=== PATIENT | male | born 1950 | race Caucasian/White ===

== ENCOUNTER 2019-07-31 14:56 | Outpatient (CLI) | payer MEDICARE, OTHER, SELFPAY ==
--- NOTE | 2019-07-31 15:03 | MR_ITS ---
WS: [id number] MRI LUMBAR SPINE NONCONTRAST TECHNIQUE: Sagittal T1, T2 and STIR imaging. Axial T1 and T2 imaging. CLINICAL INFORMATION: NECK PAIN;LUMBAR BACK PAIN COMPARISON: None. FINDINGS: Mild lumbar curve. No acute compression. Mild disc bulging L4-L5 and L5-S1. No high-grade central can al stenosis. L1-L2: Normal. L2-L3: Mild annular bulging. Mild facet arthropathy. Spinal canal and foramen are patent. L3-L4: Mild annular bulging with slight effacement of ventral thecal sac. Slight narrowing of the lef t subarticular recess. Tiny left foraminal protrusion with mild left and no significant right foramin al narrowing. Moderate facet arthropathy with small facet effusions. L4-L5: Mild annular bulging with a small annular tear. Small right foraminal protrusion with mild to moderate right and no significant left foraminal narrowing. Contact of the exiting right L4 nerve rangel t. Slight narrowing of the subarticular recess bilaterally. Mild facet arthropathy. L5-S1: Mild disc bulging with a small central disc protrusion. Slight inferior migration of disc mate rial. Slight encroachment on the traversing S1 nerve roots without significant impingement. Slight co ntact of the left S1 nerve root. Disc bulging with osteophytic ridging results in mild left greater t gardner right foraminal narrowing. Mild facet arthropathy. Visualized pelvic bony structures: Normal. Paravertebral soft tissues: Normal. MR/MR lumbar spine wo con* [id number] IMPRESSION: 1. Mild lumbar curve. No acute compression. No high-grade central canal stenos is. 2. Annular bulging L4-5 with a small annular fissure. Mild narrowing of the holguin barticular recess bilaterally. Small right foraminal protrusion with mild to mo derate right foraminal narrowing and slight contact exiting right L4 nerve root . 3. Tiny central disc protrusion L5-S1 slightly encroaches on the traversing le ft greater than right S1 nerve roots without significant impingement. 4. Mild bilateral left greater than right L5-S1 foraminal narrowing due to ecc entric disc bulging with osteophytic ridging. 5. Small left foraminal protrusion L3-4 slightly contacts the exiting L3 nerve root with mild left foraminal narrowing. 6. Moderate facet arthropathy L3-L4 and L4-L5 with edema in the L3 facets like ly degenerative or inflammatory.
== END 2019-07-31 14:57 | disposition home or self-care (01) ==
LOC: RADSHAW 15:01
PROVIDERS: Family Provider Family Medicine; PCP Family Medicine; Visit Provider Family Medicine
DX: M51.27 Other intervertebral disc displacement, lumbosacral region (principal); M51.26 Other intervertebral disc displacement, lumbar region; M54.2 Cervicalgia
CPT/HCPCS: 72148

== ENCOUNTER 2020-06-18 16:10 | Outpatient (CLI) | payer MEDICARE, OTHER, SELFPAY ==
--- NOTE | 2020-06-18 16:17 | MR_ITS ---
WS: [id number] MRI LUMBAR SPINE NONCONTRAST TECHNIQUE: Sagittal T1, T2 and STIR imaging. Axial T1 and T2 imaging. CLINICAL INFORMATION: MIDLINE LBP, LUMBAR SPONDYLOSIS, SPINAL STENOSIS OF LUMBAR COMPARISON: MRI July 31, 2019 FINDINGS: Mild lumbar curve. No acute compression. Mild disc space narrowing worse L5-S1. L1-L2: Normal. L2-L3: Minimal annular bulging. Mild facet arthropathy. Spinal canal and foramen are patent. L3-L4: Mild annular bulging. Left eccentric disc bulging with mild left and no significant right fora franc narrowing. Moderate facet arthropathy. Small facet effusions. L4-L5: Mild annular bulging. Slight narrowing of the right subarticular recess. Mild right and no sig nificant left foraminal narrowing. Moderate facet arthropathy. L5-S1: Central and right pericentral disc protrusion.Slight contact of the traversing right greater t gardner left S1 nerve roots. Mild left and no significant right foraminal narrowing. Mild facet arthropat hy. Visualized pelvic bony structures: Normal. Paravertebral soft tissues: Normal. MR/MR lumbar spine wo con* [id number] IMPRESSION: 1. Mild lumbar curve. No acute compression. No high-grade central canal stenos is. 2. Central and right pericentral disc protrusion L5-S1 contacts the traversing right S1 nerve root. Recommend correlation for right S1 nerve root symptoms. T his is slightly improved compared to previous. 3. Right eccentric disc bulging L4-5 with mild right L4-5 foraminal narrowing. Mild left L5-S1 bony foraminal narrowing. 4. Moderate facet arthropathy L3-L4 and L4-L5. .
== END 2020-06-18 16:11 | disposition home or self-care (01) ==
LOC: RADSHAW 16:14
PROVIDERS: PCP Family Medicine; Visit Provider Surgery
DX: M47.816 Spondylosis without myelopathy or radiculopathy, lumbar region (principal); M48.061 Spinal stenosis, lumbar region without neurogenic claudication; M51.26 Other intervertebral disc displacement, lumbar region
CPT/HCPCS: 72148

== ENCOUNTER 2020-09-06 09:07 | Outpatient (CLI) | payer MEDICARE, OTHER, SELFPAY ==
--- NOTE | 2020-09-06 09:15 | XRR_ITS ---
PROCEDURE INFORMATION: Exam: XR Chest Exam date and time: 09/06/2020 9:17 AM Age: 70 years old Clinical indication: Pain; Shortness of breath; Chest pressure; Additional info: Chest pressure/dyspnea/edema since 07/11 TECHNIQUE: Imaging protocol: XR of the chest. Views: Frontal and lateral upright, 2 views. COMPARISON: No relevant prior studies available. FINDINGS: Lungs: The lungs are clear bilaterally. The pulmonary vasculature is normal. Pleural spaces: No pleural effusion. No pneumothorax. Heart/Mediastinum: The heart is normal in size and contour. Bones/joints: No acute chest wall abnormality identified. XR/XR chest 2V* [id number] IMPRESSION: No acute cardiopulmonary abnormality identified.
== END 2020-09-06 09:08 | disposition home or self-care (01) ==
PROVIDERS: PCP Family Medicine; Visit Provider Family Medicine
DX: R07.89 Other chest pain (principal); R06.02 Shortness of breath; R60.9 Edema, unspecified
CPT/HCPCS: 71046

== ENCOUNTER 2020-10-06 09:19 | Outpatient (CLI) | payer MEDICARE, OTHER, SELFPAY ==
--- NOTE | 2020-10-06 09:24 | USCV_ITS ---
Duong Lei Age: 70 Gender: M : 1950 Exam Date: 10/06/2020 09:47 Ordering Phys: Leoncio Moulton DO Technologist: Queenie Cary Exam Location: [facility] [place] Indication: CHEST PRESSURE/DYSPNA/EDEMA BP: 140 / 70 HR: 75 Rhythm: Sinus Technical Quality: Adequate MEASUREMENTS (Male / Female) Normal Values 2D ECHO LV Diastolic Diameter PLAX 4.3 cm 4.2 - 5.9 / 3.9 - 5.3 cm LV Systolic Diameter PLAX 3.3 cm IVS Diastolic Thickness 1.4 cm 0.6 - 1.0 / 0.6 - 0.9 cm IVS Systolic Thickness 2.0 cm LVPW Diastolic Thickness 1.4 cm 0.6 - 1.0 / 0.6 - 0.9 cm LVPW Systolic Thickness 1.6 cm LVOT Diameter 2.2 cm LV Ejection Fraction 2D Teich 39.9 % LV Ejection Fraction MOD 2C 76.7 % LV Ejection Fraction 2C AL 77.6 % LA Diameter 3.2 cm LA Width 2.7 cm LA Height 4.2 cm Aorta at Sinotubular Diameter 3.5 cm DOPPLER AV Peak Velocity 101.0 cm/s LVOT Peak Velocity 82.0 cm/s AV Area Cont Eq vti 3.2 cm squared AV Area Cont Eq pk 3.2 cm squared MV Area PHT 2.3 cm squared Mitral E to A Ratio 0.8 MV E' Velocity 61.0 cm/s TR Peak Velocity 225.0 cm/s TR Peak Gradient 20.3 mmHg Right Atrial Pressure 3.0 mmHg Pulmonary Artery Systolic Pressu 23.3 mmHg PV Peak Velocity 91.0 cm/s RV Acceleration Time 0.2 s RV Ejection Time 0.4 s RV AcT/ET 0.5 FINDINGS Left Ventricle Normal left ventricular size and systolic function, EF 75 %. Mild left ventricular hypertrophy. No regional wall motion abnormalities. Grade I/IV diastolic dysfunction (abnormal relaxation filling pattern), normal to mildly elevated filling pressures. Right Ventricle The right ventricle is normal in size and function. Right Atrium Mildly increased right atrial size. Left Atrium The left atrium is normal in size. Mitral Valve No gross abnormalities noted Aortic Valve No gross abnormalities noted Tricuspid Valve Trace tricuspid valve regurgitation. Pulmonic Valve Pulmonic valve not well visualized. Pericardium Normal pericardium without effusion. Aorta Normal ascending aorta dimension. CONCLUSIONS Normal left ventricular size and systolic function, EF 75 %. Mild left ventricular hypertrophy. No regional wall motion abnormalities. Grade I/IV diastolic dysfunction (abnormal relaxation filling pattern), normal to mildly elevated filling pressures. Trace tricuspid valve regurgitation. No significant stenotic or regurgitant lesions. Right atrium appears to be mildly dilated There are no intracardiac masses. There is no pericardial effusion. No previous study is available for comparison. Dr Moises Saeed MD [facility] (Electronically Signed) Final Date: 07 Oct 2020 00:59 S
== END 2020-10-06 09:20 | disposition home or self-care (01) ==
LOC: US 09:20
PROVIDERS: PCP Family Medicine; Visit Provider Family Medicine
DX: R07.9 Chest pain, unspecified (principal); R06.00 Dyspnea, unspecified; R60.9 Edema, unspecified
CPT/HCPCS: 93306

== ENCOUNTER 2021-07-12 11:09 | Outpatient (CLI) | payer MEDICARE, OTHER, SELFPAY ==
--- NOTE | 2021-07-12 11:25 | XR_ITS ---
WS: [id number] Exam: XR chest 2V* [id number] Date/Time of Exam: 07/12/2021 11:25 AM Reason For Exam: PNEUMONIA/DYSPNEA/EDEMA Comparison 09/06/2020. Patchy groundglass infiltrates in the mid and lower right lung as well as the mid left lung. 2.5 cm n odular appearing density in the lower left lung zone. This could be a pulmonary nodule or loculated p leural fluid. Normal heart size. The mediastinum is normal in contour. No pneumothorax. Probable trac e right pleural effusion. Bony structures are intact. Neurostimulator electrodes are noted in the low er thoracic spinal canal. XR/XR chest 2V* [id number] IMPRESSION: 1. Patchy groundglass infiltrates in the mid and lower right lung as well as th e mid left lung region. 2. 2.5 cm ovoid density seen in the lower left lung zone that may represent a p ulmonary nodule or loculated pleural fluid. 3. Probable small posterior right-sided pleural effusion.
== END 2021-07-12 11:10 | disposition home or self-care (01) ==
PROVIDERS: PCP Family Medicine; Visit Provider Family Medicine
DX: J18.9 Pneumonia, unspecified organism (principal); R60.9 Edema, unspecified; R06.00 Dyspnea, unspecified
CPT/HCPCS: 71046

== ENCOUNTER 2021-08-16 08:01 | Outpatient (CLI) | payer MEDICARE, OTHER, SELFPAY ==
--- NOTE | 2021-08-16 08:07 | CT_ITS ---
WS: [id number] CT CHEST WITH AND WITHOUT INTRAVENOUS CONTRAST HISTORY: PNEUMONIA TECHNIQUE: Contiguous 5 mm axial imaging performed on the thorax. Coronal and sagittal reformats are submitted. All CT scans at [facility] use at least one of these dose optimization techniques: automated exposure control; mA and/or kV adjustment per patient size (includes targeted exams where dose is matched to clinical indication); or iterative reconstruction. CONTRAST: Omnipaque 300; 95 mL IV. DLP: 1617.84 mGy-cm. COMPARISON: None available. Lungs and central airway: Mild pulmonary hyperinflation. Very mild groundglass attenuation and inters titial thickening in the periphery of the RIGHT lung. Mild pleural thickening and atelectasis along t he LEFT major fissure. There is a partially calcified nodule at the RIGHT lung base consistent with a granuloma measuring 14 mm. No pneumonia. Pleura: Very minimal pleural thickening throughout the chest. No effusions. Heart and pericardium: Normal size heart with no pericardial effusion. Mediastinum and tristen: There is an indeterminate RIGHT hilar lymph node measuring 13 mm. No additional mildly enlarged lymph nodes. Indeterminate and may be reactive. Vessels: Mild atherosclerotic changes in the aorta. Normal size pulmonary artery. There are a few sca ttered coronary artery calcifications. Most significant in the LEFT anterior descending coronary. Chest wall and lower neck: No soft tissue masses. Upper abdomen: Cholelithiasis without acute cholecystitis. No adrenal mass. Mild hepatic steatosis. Osseous structures: Dorsal column stimulator in the mid thoracic region. No destructive bone lesions. CT/CT chest wo/w con [id number] IMPRESSION: 1. Mild peripheral interstitial thickening and groundglass attenuation through out the RIGHT lung. May be the residual of Covid 19 pneumonia or early changes of pulmonary fibrosis. 2. No consolidation or pneumonia. 3. Benign RIGHT lower lobe granuloma. 4. Indeterminate, single RIGHT hilar lymph node. This very well may be reacti ve. 5. Cholelithiasis without acute cholecystitis.
[2021-08-16 09:06] LABS: Blood Urea Nitrogen 14 mg/dL (8-23)
[2021-08-16] MEDS: iohexol 300 mg/mL 100 mL Btl IV (09:07)
== END 2021-08-16 08:02 | disposition home or self-care (01) ==
LOC: RAD 08:02
PROVIDERS: PCP Family Medicine; Visit Provider Family Medicine
DX: J18.9 Pneumonia, unspecified organism (principal); J84.10 Pulmonary fibrosis, unspecified; K80.20 Calculus of gallbladder without cholecystitis without obstruction
CPT/HCPCS: 71270; 82565; 84520

== ENCOUNTER → 2021-09-21 09:17 | Outpatient (BNVA) | payer MEDICARE, OTHER, SELFPAY | PROVIDERS: PCP Family Medicine; Visit Provider Internal Medicine Critical Care Medicine | DX: J84.9 Interstitial pulmonary disease, unspecified (principal); U09.9 Post COVID-19 condition, unspecified; R06.02 Shortness of breath; K21.9 Gastro-esophageal reflux disease without esophagitis; I10 Essential (primary) hypertension; Z87.891 Personal history of nicotine dependence | CPT/HCPCS: 36415; 80053; 82085; 82550; 84182; 85025; 85651; 86038; 86140; 86200; 86235; 86431; 99204 ==

== ENCOUNTER 2021-10-19 08:24 | Outpatient (CLI) | payer MEDICARE, OTHER, SELFPAY ==
--- NOTE | 2021-10-19 08:30 | CT_ITS ---
WS: [id number] CT CHEST TECHNIQUE: Noncontrast CT of the chest with coronal and sagittal reformatted images. High-resolution CT chest with inspiratory, expiration, and supine inspiration imaging CLINICAL INFORMATION: Shortness of breath COMPARISON: August 16, 2021 DLP: 2256.[address] scans at [facility] use at least one of these dose optimization techniques: automated e xposure control; mA and/or kV adjustment per patient size (includes targeted exams where dose is matc hed to clinical indication); or iterative reconstruction. FINDINGS: Calcified granuloma RIGHT lower lobe. Moderate chronic emphysematous changes. Mild peripher al interstitial thickening and groundglass opacities with mild hyperinflation similar to the prior ex amination. Small amount of subpleural honeycombing with traction bronchiectasis in the RIGHT lower lobe. Finding s can be seen with pulmonary fibrosis. Recommend correlation with pulmonary function studies. Superim posed paraseptal emphysematous changes. Pleural thickening along the LEFT fissure is unchanged. Subpleural RIGHT greater than LEFT groundglas s opacities are similar in appearance to August 16, 2021 and improved in some areas. Stable slightly prominent RIGHT hilar lymph node measuring 9 mm unchanged. Normal caliber thoracic aorta. Aortic calcification. Coronary calcification. Otherwise no mediastinal or hilar lymphadenopath y. Cholelithiasis. Normal GE junction. Partially visualized adrenal glands are normal. No axillary ly mphadenopathy. Dorsal spinal stimulator in the mid thoracic spine. CT/CT chest wo con [id number] IMPRESSION: 1. Bilateral RIGHT greater than LEFT subpleural interstitial thickening and claudio zy groundglass opacities similar in appearance to the prior examination. No mandy dence of progression. This is slightly improved in some areas.. 2. Small amount of subpleural honeycombing with traction bronchiectasis in the RIGHT lower lobe. Findings can be seen with pulmonary fibrosis. Recommend lina elation with pulmonary function studies. Superimposed paraseptal emphysematous changes. 3. Mild air-trapping in the mid and upper lungs bilaterally. 4. Stable slightly prominent 9 mm RIGHT hilar lymph node. 5. Cholelithiasis.
== END 2021-10-19 08:25 | disposition home or self-care (01) ==
LOC: RAD 08:28
PROVIDERS: PCP Family Medicine; Visit Provider Internal Medicine Critical Care Medicine
DX: R06.02 Shortness of breath (principal); J84.9 Interstitial pulmonary disease, unspecified; F17.210 Nicotine dependence, cigarettes, uncomplicated
CPT/HCPCS: 71250; 94060; 94726; 94729; J7611

== ENCOUNTER 2021-10-19 08:25 | Outpatient (CLI) | payer MEDICARE, OTHER, SELFPAY ==
--- NOTE | 2021-10-19 10:42 | PFTS_ITS ---
Date of Study:10/19/21 Date of Dictation: 10/21/2021 MECHANICS: Postbronchodilator forced vital capacity (FVC) is normal. Postbronchodilator forced expiratory volume in one second (FEV1) is normal. FEV1/FVC is normal. There is no significant response to bronchodilators. FLOW VOLUME LOOP: Normal LUNG VOLUMES: Total lung capacity (TLC) is normal. Residual volume (RV) is normal. DIFFUSING CAPACITY FOR CARBON MONOXIDE: Mildly reduced . INTERPRETATION: The spirometry is normal. No significant response to bronchodilators. Lung volumes are normal. There is mild gas transfer defect. Isolated defect in gas transfer suggestive of pulmonary vascular disease. Clinical correlation recommended. MTDD
== END 2021-10-19 08:26 | disposition home or self-care (01) ==
LOC: RT 08:28
PROVIDERS: PCP Family Medicine; Visit Provider Internal Medicine Critical Care Medicine
DX: J84.9 Interstitial pulmonary disease, unspecified (principal); F17.210 Nicotine dependence, cigarettes, uncomplicated
CPT/HCPCS: 94060; 94726; 94729; J7611

== ENCOUNTER → 2021-10-24 08:24 | Outpatient (BNVA) | payer MEDICARE, OTHER, SELFPAY | PROVIDERS: PCP Family Medicine; Visit Provider Internal Medicine Critical Care Medicine | DX: J84.9 Interstitial pulmonary disease, unspecified (principal); Z87.891 Personal history of nicotine dependence; K21.9 Gastro-esophageal reflux disease without esophagitis; I10 Essential (primary) hypertension; E03.9 Hypothyroidism, unspecified; M10.9 Gout, unspecified; Z86.16 Personal history of COVID-19 | CPT/HCPCS: 99214 ==

== ENCOUNTER 2021-10-28 09:01 | Outpatient (CLI) | payer MEDICARE, OTHER, SELFPAY ==
--- NOTE | 2021-10-28 09:08 | USCV_ITS ---
Duong Lei Age: 71 Gender: M : 1950 Exam Date: 10/28/2021 09:24 Ordering Phys: Leoncio Moulton DO Technologist: Peña Schwartz Exam Location: [facility] [place] Indication: lung disease BP: 150 / 81 HR: 78 Rhythm: Sinus Technical Quality: Adequate MEASUREMENTS (Male / Female) Normal Values 2D ECHO LV Diastolic Diameter PLAX 3.8 cm 4.2 - 5.9 / 3.9 - 5.3 cm LV Systolic Diameter PLAX 2.4 cm IVS Diastolic Thickness 1.0 cm 0.6 - 1.0 / 0.6 - 0.9 cm IVS Systolic Thickness 1.6 cm LVPW Diastolic Thickness 1.4 cm 0.6 - 1.0 / 0.6 - 0.9 cm LVPW Systolic Thickness 1.5 cm LVOT Diameter 2.0 cm LV Ejection Fraction 2D Teich 69.7 % LV Ejection Fraction MOD 2C 68.3 % LV Ejection Fraction 2C AL 69.0 % LA Diameter 3.2 cm LA Width 3.2 cm LA Height 4.9 cm RA Width 3.3 cm RA Height 4.5 cm Aorta at Sinotubular Diameter 2.6 cm IVC Diameter 1.9 cm M-MODE Aortic Annulus Diameter 3.2 cm LA Ao Ratio MM 1.0 MV E Point Septal Separation 0.7 cm DOPPLER AV Peak Velocity 127.0 cm/s LVOT Peak Velocity 101.0 cm/s AV Area Cont Eq vti 2.6 cm squared AV Area Cont Eq pk 2.5 cm squared MV Peak Velocity 80.0 cm/s MV Area PHT 4.7 cm squared Mitral E to A Ratio 0.6 MV E' Velocity 27.6 cm/s Mitral E to MV E' Ratio 7.2 Mitral E to LV E' Lateral Ratio 5.8 Mitral E to LV E' Septal Ratio 9.4 Right Atrial Pressure 3.0 mmHg RV Acceleration Time 0.1 s RV Ejection Time 0.3 s RV AcT/ET 0.4 FINDINGS Left Ventricle Normal left ventricular size and systolic function, EF 70 %. No regional wall motion abnormalities. Mild left ventricular hypertrophy. Grade I/IV diastolic dysfunction (abnormal relaxation filling pattern), normal to mildly elevated filling pressures. Right Ventricle The right ventricle is normal in size and function. Right Atrium The right atrium is normal in size. Left Atrium The left atrium is normal in size. Mitral Valve No gross abnormalities noted Aortic Valve No gross abnormalities noted Tricuspid Valve Trace to mild tricuspid valve regurgitation. Pulmonic Valve No gross abnormalities noted Pericardium Normal pericardium without effusion. Aorta Normal ascending aorta dimension. IVC The inferior vena cava pulmonary and hepatic veins appear normal. CONCLUSIONS Normal left ventricular size and systolic function, EF 70 %. No regional wall motion abnormalities. Mild left ventricular hypertrophy. Grade I/IV diastolic dysfunction (abnormal relaxation filling pattern), normal to mildly elevated filling pressures. Normal cardiac chamber sizes. No significant stenotic or regurgitant lesions There is no pericardial effusion. There are no intracardiac masses. Compared to the study from 10/06/2020, there may not be a significant change Dr Moises Saeed MD FAC (Electronically Signed) Final Date: 28 October 2021 19:31 S
== END 2021-10-28 09:02 | disposition home or self-care (01) ==
PROVIDERS: PCP Family Medicine; Visit Provider Family Medicine
DX: J84.9 Interstitial pulmonary disease, unspecified (principal); R60.9 Edema, unspecified
CPT/HCPCS: 93306

== ENCOUNTER → 2021-11-08 08:45 | Outpatient (BNVA) | payer MEDICARE, OTHER, SELFPAY | PROVIDERS: PCP Family Medicine; Visit Provider Internal Medicine Rheumatology | DX: M05.79 Rheumatoid arthritis with rheumatoid factor of multiple sites without organ or systems involvement (principal); R76.0 Raised antibody titer; J84.9 Interstitial pulmonary disease, unspecified; Z11.59 Encounter for screening for other viral diseases; Z11.1 Encounter for screening for respiratory tuberculosis; Z79.899 Other long term (current) drug therapy; Z86.16 Personal history of COVID-19; Z71.85 Encounter for immunization safety counseling | CPT/HCPCS: 73130; 73630; 82085; 82306; 82550; 83520; 84550; 86140; 86480; 86704; 86803; 87340; 99205 ==

== ENCOUNTER 2021-11-08 13:05 | Outpatient (CLI) | payer MEDICARE, OTHER, SELFPAY ==
[2021-11-08 14:53] LABS: Creatine Phosphokinase 72 U/L (39-308); Uric Acid 4.8 mg/dL (3.4-7.0)
[2021-11-08 15:26] LABS: Hepatitis B Core AB, Total Non-Reactive (Nonreactive); Hepatitis B Surface Antigen Non-Reactive (Nonreactive); Hepatitis C Virus Antibody Non-Reactive (Nonreactive)
[2021-11-08 15:29] LABS: 25 Hydroxy Vitamin D 61 ng/mL (30-100)
[2021-11-09 17:38] LABS: Aldolase 5.1 U/L (< OR = 8.1)
[2021-11-10 14:43] LABS: Quantiferon Mitogen >10.00 IU/mL; Quantiferon Nil 0.01 IU/mL; Quantiferon TB Gold NEGATIVE (NEGATIVE)
[2021-11-12 23:53] LABS: HMGCR IgG Antibody <2 CU (<20)
[2021-11-18 13:56] LABS: Erythrocyte Sedimentation Rate 9 mm/hr (0-10)
== END 2021-11-08 13:06 | disposition home or self-care (01) ==
PROVIDERS: PCP Family Medicine; Visit Provider Internal Medicine Rheumatology
DX: M05.79 Rheumatoid arthritis with rheumatoid factor of multiple sites without organ or systems involvement (principal); R76.0 Raised antibody titer; J84.9 Interstitial pulmonary disease, unspecified; Z11.1 Encounter for screening for respiratory tuberculosis; Z86.16 Personal history of COVID-19; Z71.85 Encounter for immunization safety counseling; Z11.59 Encounter for screening for other viral diseases
CPT/HCPCS: 82085; 82306; 82550; 83520; 84550; 85651; 86140; 86480; 86704; 86803; 87340; 99205

== ENCOUNTER → 2021-12-27 10:52 | Outpatient (BNVA) | payer MEDICARE, OTHER, SELFPAY | PROVIDERS: PCP Family Medicine; Visit Provider Internal Medicine Rheumatology | DX: M05.79 Rheumatoid arthritis with rheumatoid factor of multiple sites without organ or systems involvement (principal); Z79.899 Other long term (current) drug therapy; R76.0 Raised antibody titer; J84.9 Interstitial pulmonary disease, unspecified; M43.28 Fusion of spine, sacral and sacrococcygeal region; Z86.16 Personal history of COVID-19; Z87.891 Personal history of nicotine dependence; Z71.85 Encounter for immunization safety counseling | CPT/HCPCS: 72202; 99214 ==

== ENCOUNTER → 2022-01-25 08:54 | Outpatient (BNVA) | payer MEDICARE, OTHER, SELFPAY | PROVIDERS: PCP Family Medicine; Visit Provider Internal Medicine Critical Care Medicine | DX: J84.9 Interstitial pulmonary disease, unspecified (principal); J43.9 Emphysema, unspecified; Z87.891 Personal history of nicotine dependence; M06.9 Rheumatoid arthritis, unspecified; M33.22 Polymyositis with myopathy | CPT/HCPCS: 99214 ==

== ENCOUNTER → 2022-03-21 11:16 | Outpatient (BNVA) | payer MEDICARE, OTHER, SELFPAY | PROVIDERS: PCP Family Medicine; Visit Provider Internal Medicine Rheumatology | DX: M05.79 Rheumatoid arthritis with rheumatoid factor of multiple sites without organ or systems involvement (principal); Z79.899 Other long term (current) drug therapy; R76.0 Raised antibody titer; Z71.85 Encounter for immunization safety counseling; J84.9 Interstitial pulmonary disease, unspecified; Z87.891 Personal history of nicotine dependence; Z86.16 Personal history of COVID-19; M70.61 Trochanteric bursitis, right hip; M70.62 Trochanteric bursitis, left hip; Y93.9 Activity, unspecified | CPT/HCPCS: 80076; 82565; 85025; 86140; 99214 ==

== ENCOUNTER → 2022-03-30 15:00 | Outpatient (BNVA) | payer MEDICARE, OTHER, SELFPAY | PROVIDERS: PCP Family Medicine; Visit Provider Internal Medicine Rheumatology | DX: M70.61 Trochanteric bursitis, right hip (principal); M70.62 Trochanteric bursitis, left hip; Y93.9 Activity, unspecified; Z71.89 Other specified counseling | CPT/HCPCS: 20610; J1030 ==

== ENCOUNTER → 2022-05-26 09:24 | Outpatient (BNVA) | payer MEDICARE, OTHER, SELFPAY | PROVIDERS: PCP Family Medicine; Visit Provider Internal Medicine Pulmonary Disease | DX: J84.9 Interstitial pulmonary disease, unspecified (principal); J43.9 Emphysema, unspecified; Z87.891 Personal history of nicotine dependence; M33.22 Polymyositis with myopathy; M06.9 Rheumatoid arthritis, unspecified | CPT/HCPCS: 99214 ==

== ENCOUNTER 2022-06-29 11:19 | Outpatient (CLI) | payer MEDICARE, OTHER, SELFPAY | END 2022-06-29 11:20 | disposition home or self-care (01) | PROVIDERS: PCP Family Medicine; Visit Provider Internal Medicine Pulmonary Disease | DX: J84.9 Interstitial pulmonary disease, unspecified (principal); U07.1 COVID-19; J43.9 Emphysema, unspecified | CPT/HCPCS: 94010; 94726; 94729 ==

== ENCOUNTER → 2022-07-04 10:23 | Outpatient (BNVA) | payer MEDICARE, OTHER, SELFPAY | PROVIDERS: PCP Family Medicine; Visit Provider Internal Medicine Rheumatology | DX: Z79.899 Other long term (current) drug therapy (principal); M05.79 Rheumatoid arthritis with rheumatoid factor of multiple sites without organ or systems involvement; R76.0 Raised antibody titer; Z71.85 Encounter for immunization safety counseling; J84.9 Interstitial pulmonary disease, unspecified; Z86.16 Personal history of COVID-19; M33.13 Other dermatomyositis without myopathy; Z79.52 Long term (current) use of systemic steroids; Z09 Encounter for follow-up examination after completed treatment for conditions other than malignant neoplasm | CPT/HCPCS: 36415; 72170; 73030; 80076; 82565; 85025; 86140; 99214 ==

== ENCOUNTER 2022-08-28 10:00 | Inpatient (IN) | payer MEDICARE, OTHER, SELFPAY ==
[2022-08-28] VITALS (45 sets, daily range): BP systolic 107–200; BP diastolic 68–142; PULSE 69–123; RESP 11–24; TEMP 36.4–37.2; O2SAT 89–97
[2022-08-28 11:25] LABS: Basophils % 0.4 %; Eosinophils # 0.1 10^3/uL (0.0-0.8); Eosinophils % 0.5 %; Hematocrit 44.5 % (42.0-52.0); Hemoglobin 14.4 g/dL (11.7-16.6); Lymphocytes # 1.5 10^3/uL (0.8-4.8); Lymphocytes % 13.7 %; Mean Corpuscular HGB Conc 32.4 g/dL (30.0-36.0); Mean Corpuscular Hemoglobin 31.2 pg (28.0-34.0); Mean Corpuscular Volume 96.3 fl (80-94); Mean Platelet Volume 11.1 fL (7.4-10.4); Monocytes # 0.7 10^3/uL (0.2-0.9); Monocytes % 6.7 %; Neutrophils # 8.41 10^3/uL (1.8-7.7); Neutrophils % 78.1 %; Nucleated Red Blood Cells % 0 %; Platelet Count 288 10^3/cmm (130-400); Red Blood Count 4.62 10^6/uL (4.1-5.3); Red Cell Distribution Width 13.2 % (12.1-15.1); White Blood Count 10.8 10^3/uL (4.0-10.0)
--- NOTE | 2022-08-28 11:25 | ECG_ITS ---
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 Measurements Intervals [place] Rate: 106 P: 66 OR: 151 QRS: -58 QRSD: 84 T: 73 QT: 323 QTc: 429 Interpretive Statements SINUS TACHYCARDIA POSSIBLE LEFT ATRIAL ENLARGEMENT [-0.1mV P-WAVE IN V1/V2] LEFT ANTERIOR FASCICULAR BLOCK [QRS AXIS <= -45, QR IN I, RS IN II] No previous ECG available for comparison Electronically Signed On 08-28-2022 23:40:37 CDT by Moises Saeed M.D. [id number] f
--- NOTE | 2022-08-28 11:29 | XR_ITS ---
WS: [id number] EXAMINATION: XR chest 1V portable [id number] REASON FOR EXAM: dyspnea/cough COMPARISON: Exam: 07/12/2021 Date/Time of Exam: 08/28/2022 11:29 AM FINDINGS: There has been clearing of previous groundglass infiltrates in the mid and lower right lung and left lung since previous. 2.5 cm nodular appearing density in the lower left lung zone is now 20 mm in crane assembler niocaudal dimension and approximately 50% less wide than on the previous study. Normal heart size. Th e mediastinum is normal in contour. No pneumothorax. Probable trace right pleural effusion. Bony stru ctures are intact. Neurostimulator electrodes are noted in the lower thoracic spinal canal. XR/XR chest 1V portable [id number] IMPRESSION: 1. Previous groundglass infiltrates in the mid and lower right lung as well as the mid left lung region have cleared.. 2. 2.5 cm ovoid density seen in the lower left lung has significantly decreased in size
--- NOTE | 2022-08-28 11:29 | CT_ITS ---
WS: [id number] CT HEAD TECHNIQUE: Noncontrast CT of the head obtained from the skullbase to the vertex. CLINICAL INFORMATION: AMS/ post code COMPARISON: None. DLP: 1149.[address] scans at [facility] use at least one of these dose optimization techniques: automated e xposure control; mA and/or kV adjustment per patient size (includes targeted exams where dose is matc hed to clinical indication); or iterative reconstruction. FINDINGS: No evidence of intracranial hemorrhage or mass effect. Ventricular system and basal cisterns are mcnamara nt. Mild small vessel changes with moderate parenchymal volume loss. Vascular calcification. No extra -axial fluid collections. No evidence of mass or mass effect. Mastoid air cells are well aerated. Trace fluid in the sphenoid sinuses. CT/CT head wo con* [id number] IMPRESSION: 1. No evidence of intracranial hemorrhage or mass effect. 2. Mild small vessel changes. Moderate parenchymal volume loss. 3. Vascular calcification. 4. No acute intracranial findings.
[2022-08-28 11:34] LABS: ABG PCO2 34.4 mmHg (35-45); ABG PH Result 7.31 (7.35-7.45); Alveolar-Arterial Oxygen Gradi 3.3 mmHg (5-10); Arterial Blood Gas Hematocrit 45.1 % (42-52); Base Excess ABG -7.9 mmol/L (-2.0-2.0); Blood Gas Operator Identificat GD; Blood Gas Sample Site Brachial, right; Blood Gas Sample Type Arterial; Carboxyhemoglobin 1.3 %THgb (0.4-20.1); HCO3 ABG 17.4 mmol/L (22-26); Ionized Calcium Level - ABG 1.2 mmol/L (1.1-1.4); Oxygen Device ROOM AIR; Oxygen Saturation ABG 96.2; PO2 ABG 82.5 mmHg (80.0-100.0); Potassium Level - ABG 3.7 mmol/L (3.5-5.0); Total Hemoglobin 14.7 g/dL (14-18)
[2022-08-28 11:45] LABS: Alanine Aminotransferase 27 U/L (0-41); Albumin Level 4.4 g/dL (3.5-5.2); Alkaline Phosphatase 58 U/L (40-130); Anion Gap 20.3 (5-19); Aspartate Amino Transferase 22 U/L (0-40); Blood Urea Nitrogen 24 mg/dL (8-23); Calcium 9.3 mg/dL (8.5-10.5); Carbon Dioxide 21 mmol/L (22-29); Chloride 101 mmol/L (98-107); Globulin 3.1 g/dL (1.3-4.6); Glucose 107 mg/dL (65-115); Osmolality Calculated 291 mOsm/kg (285-295); Potassium 4.3 mmol/L (3.5-5.1); Sodium 138 mmol/L (136-145); Total Bilirubin 0.4 mg/dL (0.15-1.2); Total Protein 7.5 g/dL (6.6-8.7)
[2022-08-28 11:55] LABS: Lactic Sepsis W/Reflex 1.4 mmol/L (0.5-2.2)
[2022-08-28 12:01] LABS: Troponin(5th) Baseline 24 ng/L (0-15)
[2022-08-28 12:03] LABS: Creatine Phosphokinase 108 U/L (39-308)
[2022-08-28] MEDS: ondansetron 2 mg/ML SDV 2 mL 4 MG IVP (12:43)
--- NOTE | 2022-08-28 13:04 | W.ED.EPISTAX ---
HPI - Epistaxis General: Chief complaint: Epistaxis Stated complaint: nosebleed Time Seen by Provider: 08/28/22 10:17 Source: patient Mode of arrival: ambulatory History of Present Illness: 72-year-old male who presents emergency room complaining of waking up this morning with epistaxis. Gone through several tissues had been pinching at the bridge of the nose was unable to get it to stop. He does take aspirin and clopidogrel does not take any anticoagulants. He has not had any fevers sweats or chills no recent trauma to the nose he is remote history of during his high school years having a nose fracture but nothing since. MD complaint: epistaxis Location: right nostril Onset (ago): hour(s) Duration: constant Context: aspirin use and other (Clopidogrel) Associated symptoms: Deny fever(s), headache(s), sinus pain, syncope, vomiting, weakness or other Treatment prior to arrival: nose pinching, head leaned forward and stuffed nose with tissue Review of Systems Const: Denies: fever(s), chills, fatigue or malaise ENMT: Reports: nasal congestion and epistaxis (2-day); Denies: throat pain or sinus pain Card: Denies: chest pain, palpitations, irregular heart rhythm or syncope Resp: Denies: dyspnea, productive cough or non-productive cough GI: Denies: abdominal pain, nausea or vomiting : Denies: flank pain, dysuria, urinary frequency or urinary urgency Skin/Breast: Denies: rash or pruritus Neuro: Denies: headache(s) PFS ED PFSH: Medical History Abnormal antibody titer + MDA-5 ab Arthritis Carotid artery obstruction GERD (gastroesophageal reflux disease) Gout High risk medication use HTN (hypertension) Hypothyroid Immunization counseling Insomnia Seropositive rheumatoid arthritis of multiple sites Stroke Surgical History No pertinent past surgical history Family History Brother Diabetes Social History Smoking and tobacco status: never smoked Quit status (tobacco): has quit using tobacco Year quit tobacco: 2017 Former quit date comment: 1 ppd X 57 years Alcohol intake: current Physical Exam Const: GENERAL APPEARANCE: cooperative and comfortable ORIENTATION/CONSCIOUSNESS: Yes awake, Yes oriented to person, Yes oriented to place and Yes oriented to time HENMT: COMMON NORMALS: normocephalic, atraumatic and hearing grossly normal bilaterally HEAD & SCALP: normocephalic and atraumatic Resp: COMMON NORMALS: normal respiratory effort, No retractions, No use of accessory muscles and clear to auscultation bilaterally AUSCULTATION: clear to auscultation bilaterally Cardio: COMMON NORMALS: regular rate, regular rhythm and No murmurs present (Cardio) RATE: regular rate RHYTHM: regular rhythm GI: COMMON NORMALS: Soft to palpation and No hepatosplenomegaly present AUSCULTATION: Yes normoactive bowel sounds PALPATION: Yes Soft to palpation, No Tenderness to palpation present (GI), No Guarding due to palpation present (GI) and Yes No hepatosplenomegaly present Extremity: COMMON NORMALS: normal to inspection, capillary refill normal, no clubbing, cyanosis or edema, no calf tenderness and no pedal edema Neuro: SENSORIUM/ORIENTATION: Yes oriented to person, Yes oriented to place and Yes oriented to time Skin: COMMON NORMALS: no rashes or lesions noted GENERAL SKIN EXAM: no rashes or lesions noted Course Vital Signs: Vital signs: Vital Signs Temperature 98.2 F 08/31/22 00:00 Pulse Rate 85 08/31/22 05:51 Respiratory Rate 18 08/31/22 04:00 Blood Pressure 109/67 08/31/22 04:00 Pulse Oximetry 94 08/31/22 04:00 Oxygen Delivery Me thod Room Air 08/31/22 04:00 Oxygen Flow Rate 2 08/30/22 20:47 [facility] - Epistaxis Medical Decision Making Patient presented with a simple epistaxis has not previously had epistaxis previously. He is on clopidogrel and aspirin. Nurses responded after patient became nonresponsive when I came to the room there was no palpable pulse. Compressions began initially after an initial 10-12 compressions patient began spontaneously coughing and was verbal. He did not receive any respirations. Immediately after becoming responsive patient coughed up large amount of blood. Patient was moved to an upright position and nasal tampons were inserted without the use of oxymetazoline to control bleeding. Only a small amount of bleeding from the naris was noted at that point. He did continue to have a little bit of oozing particularly on the right were unable to fully advance the left nasal tampon because of septal deviation from previous nose fracture. Later during the course of the visit those nasal tampons were removed nose was irrigated with saline oxymetazoline applied and new nasal tampons placed this resulted in cessation of epistaxis. Suspect that the patient has some sleep apnea suspect that he for a brief period of time obscured his airway and vasovagal. There is a concern he may have aspirated. He is awake and alert has no focal neurologic deficits he is complaining of chest pain from the compressions he had no chest pain prior. Will admit and consult ENT I discussed with hospitalist and with Dr. Owusu. Medical Records I reviewed the patient's medical records. Lab Data I reviewed the patient's lab results. 08/31/22 05:11 08/31/22 05:[address] 08/28/22 11:29 IMPRESSION: 1. No evidence of intracranial hemorrhage or mass effect. 2. Mild small vessel changes. Moderate parenchymal volume loss. 3. Vascular calcification. 4. No acute intracranial findings. Chest X-Ray 08/29/22 10:54 IMPRESSION: No change from previous study on 08/28/2022 Laboratory Results WBC 10.8 10^3/uL (4.0-10.0) H 08/28/22 11:14 RBC 4.62 10^6/uL (4.1-5.3) 08/28/22 11:14 Hgb 14.4 g/dL (11.7-16.6) 08/28/22 11:14 Hct 44.5 % (42.0-52.0) 08/28/22 11:14 MCV 96.3 fl (80-94) H 08/28/22 11:14 MCH 31.2 pg (28.0-34.0) 08/28/22 11:14 MCHC 32.4 g/dL (30.0-36.0) 08/28/22 11:14 RDW 13.2 % (12.1-15.1) 08/28/22 11:14 Plt Count 288 10^3/cmm (130-400) 08/28/22 11:14 MPV 11.1 fL (7.4-10.4) H 08/28/22 11:14 Neut % (Auto) 78.1 % 08/28/22 11:14 Lymph % (Auto) 13.7 % 08/28/22 11:14 [place] % (Auto) 6.7 % 08/28/22 11:14 Eos % (Auto) 0.5 % 08/28/22 11:14 Baso % (Auto) 0.4 % 08/28/22 11:14 Neut # (Auto) 8.41 10^3/uL (1.8-7.7) H 08/28/22 11:14 Lymph # (Auto) 1.5 10^3/uL (0.8-4.8) 08/28/22 11:14 [place] # (Auto) 0.7 10^3/uL (0.2-0.9) 08/28/22 11:14 Eos # (Auto) 0.1 10^3/uL (0.0-0.8) 08/28/22 11:14 Baso # (Auto) 0.0 10^3/uL (0.0-0.1) 08/28/22 11:14 Nucleated RBC % (auto) 0 % 08/28/22 11:14 Nucleated RBCs # 0.0 /100WBC 08/28/22 11:14 PT 13.20 SECONDS (12.1-14.9) 08/28/22 15:37 INR 0.97 (0.8-1.2) 08/28/22 15:37 Specimen Type Arterial 08/28/22 11:15 Sample Site Brachial, right 08/28/22 11:15 ABG pH 7.31 (7.35-7.45) L 08/28/22 11:15 ABG pCO2 34.4 mmHg (35-45) L 08/28/22 11:15 ABG pO2 82.5 mmHg (80.0-100.0) 08/28/22 11:15 ABG HCO3 17.4 mmol/L (22-26) L 08/28/22 11:15 ABG O2 Saturation 96.2 08/28/22 11:15 ABG Base Excess -7.9 mmol/L (-2.0-2.0) L 08/28/22 11:15 Curtis Test N/a 08/28/22 11:15 A-a O2 Gradient 3.3 mmHg (5-10) L 08/28/22 11:15 Hematocrit 45.1 % (42-52) 08/28/22 11:15 Hgb O2 Saturation 94.0 % (95-100) L 08/28/22 11:15 Carboxyhemoglobin 1.3 %THgb (0.4-20.1) 08/28/22 11:15 Methemoglobin 1.0 % (0.4-1.5) 08/28/22 11:15 Total Hemoglobin 14.7 g/dL (14-18) 08/28/22 11:15 Sodium 144.0 mmol/L (131-143) H 08/28/22 11:15 Potassium 3.7 mmol/L (3.5-5.0) 08/28/22 11:15 Glucose 159.0 mg/dL (70-115) H 08/28/22 11:15 Ionized Calcium 1.2 mmol/L (1.1-1.4) 08/28/22 11:15 O2 Delivery Device Room air 08/28/22 11:15 Accounting Manager Controller ID [id number] 08/28/22 11:15 Sodium 138 mmol/L (136-145) 08/28/22 11:14 Potassium 4.3 mmol/L (3.5-5.1) 08/28/22 11:14 Chloride 101 mmol/L (98-107) 08/28/22 11:14 Carbon Dioxide 21 mmol/L (22-29) L 08/28/22 11:14 Anion Gap 20.3 (5-19) H 08/28/22 11:14 BUN 24 mg/dL (8-23) H 08/28/22 11:14 Creatinine 1.5 mg/dL (0.7-1.2) H 08/28/22 11:14 GFR Calculation Not Reportable 08/28/22 11:14 Glucose 107 mg/dL (65-115) 08/28/22 11:14 Calculated Osmolality 291 mOsm/kg (285-295) 08/28/22 11:14 Lactic Acid 1.4 mmol/L (0.5-2.2) 08/28/22 11:29 Calcium 9.3 mg/dL (8.5-10.5) 08/28/22 11:14 Total Bilirubin 0.4 mg/dL (0.15-1.2) 08/28/22 11:14 AST 22 U/L (0-40) 08/28/22 11:14 ALT 27 U/L (0-41) 08/28/22 11:14 Alkaline Phosphatase 58 U/L (40-130) 08/28/22 11:14 Creatine Kinase 108 U/L (39-308) 08/28/22 11:29 Troponin T Baseline 24 ng/L (0-15) H 08/28/22 11:29 Troponin T 120 Minute 23.44 ng/L (0-15) H 08/28/22 13:20 Delta Troponin T -0.56 ABS# (0-10) L 08/28/22 13:20 Troponin T Hi Sens 6Hr 27.63 ng/L (0-15) H 08/28/22 17:33 Troponin T Hi Sens 6Hr Delta 3.63 ng/L (0-12) 08/28/22 17:33 Total Protein 7.5 g/dL (6.6-8.7) 08/28/22 11:14 Albumin 4.4 g/dL (3.5-5.2) 08/28/22 11:14 Globulin 3.1 g/dL (1.3-4.6) 08/28/22 11:14 Discharge Plan Discharge Patient Disposition: Admitted As Inpatient Admit Provider: Gregorio Bah Clinical Impression: Epistaxis Condition: Stable Coding Level of Care Code ED Crm Coordinator for Blanca Yee
--- NOTE | 2022-08-28 13:29 | ECG_ITS ---
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 Measurements Intervals [place] Rate: 100 P: 52 GA: 152 QRS: -31 QRSD: 79 T: 47 QT: 322 QTc: 415 Interpretive Statements SINUS TACHYCARDIA LEFT AXIS DEVIATION [QRS AXIS < -30] LOW QRS VOLTAGE IN PRECORDIAL LEADS [QRS DEFLECTION < 1.0 mV IN CHEST LEADS] PATTERN CONSISTENT WITH PULMONARY DISEASE No previous ECG available for comparison Electronically Signed On 08-28-2022 23:49:11 CDT by Moises Saeed M.D. [id number]
[2022-08-28] MEDS: morphine 4 mg/mL SDV 1 mL 2 MG IVP ×2 (13:38→13:56)
[2022-08-28] MEDS: LORazepam 2 mg/mL INJ 1 mL IVP (13:38)
[2022-08-28] MEDS: oxymetazoline 0.05% Nasal Spray 15 mL 2 SPRAY NOSTRIL-B (13:56)
[2022-08-28 14:02] LABS: Troponin 5 2HR 23.44 ng/L (0-15); Troponin 5 2HR Delta -0.56 ABS# (0-10)
--- NOTE | 2022-08-28 15:36 | P.HP_ITS ---
Providers/Chief Complaint Primary Care Provider: Leoncio Moulton DO Chief Complaint: nosebleed History of Present Illness 8Cjaylan Lei is a 72 year old male with history of hypothyroidism, history of CVA, hypertension, carotid artery obstruction, emphysema history of interstitial lung disease, history of myopathic polymyositis, rheumatoid arthritis. Who is on aspirin and Plavix for his history of CVA who presents [facility] for significant epistaxis. He woke up around 8 AM, noticed that he started getting up getting epistaxis. In the emergency room he continued to have epistaxis, I was told by ER staff he had significant episode of bloody vomitus with significant aspiration event, resulting in apnea, loss of pulse and cardiac arrest, he received roughly 20 to 30 seconds of CPR, with successful ROSC, no medications required, no intubation required, he was alert and awake right after. He had bilateral Rhino Rocket's placed, which were removed, received oxy metolazone, then bilateral Rhino Rocket's were replaced. He had another episode of bloody vomitus. He is alert and awake, he has received morphine and Ativan, he is on room air, normotensive, denies any chest pain but his chest is sore after the CPR he received. Denies any shortness of breath, lightheadedness, dizziness. He has received Ativan and morphine so he is a bit drowsy. Patient's daughter and are at bedside. I had an exten sive discussion with Dr. Shannon multiple times, about patient's case, about his recurrent bloody vomitus episodes, recommended inflating the Rhino Rocket further with saline, recommended continued monitoring, medical management, and would avoid surgery unless absolutely necessary Review of Systems Const: Denies: fever(s) Card: Denies: chest pain Resp: Denies: dyspnea Neuro: Denies: headache(s) Medications/Allergies Home Medications Medication Instructions Recorded Confirmed Last Taken Type acetaminophen 650 mg 650 mg PO DAILY PRN Pain 09/21/21 08/28/22 Unknown History tablet,extended release (Tylenol Arthritis Pain) allopurinol 300 mg tablet 300 mg PO DAILY 09/21/21 08/28/22 08/27/22 History aspirin 81 mg tablet,delayed 81 mg PO DAILY 09/21/21 08/28/22 08/27/22 History release cholecalciferol (vitamin D3) 125 125 mcg PO DAILY 09/21/21 08/28/22 08/27/22 History mcg (5,000 unit) capsule clopidogrel 75 mg tablet 75 mg PO DAILY 09/21/21 08/28/22 08/27/22 History omeprazole 20 mg capsule,delayed 20 mg PO DAILY 09/21/21 08/28/22 08/27/22 History release hydrocodone 5 mg-acetaminophen 325 1 tab PO Q8H PRN pain 1 month #60 12/28/21 08/28/22 Unknown Rx mg tablet tabs albuterol sulfate 90 mcg/actuation 2 puff inhalation 6XD PRN 01/26/22 08/28/22 Unknown Rx aerosol inhaler shortness of breath or wheezing 30 days #8.5 grams mycophenolate mofetil 500 mg 500 mg PO BID #60 tabs 07/04/22 08/28/22 08/27/22 Rx tablet (CellCept) tofacitinib 5 mg tablet (Xeljanz) 5 mg PO BID #60 tabs 07/04/22 08/28/22 08/27/22 Rx amlodipine 10 mg tablet 5 mg PO DAILY 08/10/22 08/28/22 08/27/22 History levothyroxine 50 mcg capsule 50 mcg PO DAILY #90 caps 08/14/22 08/28/22 08/27/22 Rx losartan 50 mg tablet 50 mg PO DAILY #90 tabs 08/16/22 08/28/22 08/24/22 Rx Allergies Allergy/AdvReac Type Severity Reaction Status Date / Time duloxetine [From Cymbalta] Allergy Unknown Verified 07/04/22 10:46 oxycodone Allergy Unknown Verified 08/28/22 12:22 PFSH Acute PFSH: Medical History (Updated 08/28/22 @ 15:48 by Gregorio Bah MD) Abnormal antibody titer + MDA-5 ab Arthritis Carotid artery obstruction GERD (gastroesophageal reflux disease) Gout High risk medication use HTN (hypertension) Hypothyroid Immunization counseling Insomnia Seropositive rheumatoid arthritis of multiple sites Stroke Surgical History (Updated 08/28/22 @ 15:46 by Gregorio Bah MD) No pertinent past surgical history Family History (Updated 08/28/22 @ 16:28 by Gregorio Bah MD) Brother Diabetes Social History (Updated 08/28/22 @ 16:27 by Gregorio Bah MD) Smoking and tobacco status: never smoked Quit status (tobacco): has quit using tobacco Year quit tobacco: 2017 Former quit date comment: 1 ppd X 57 years Alcohol intake: current Substance/Drug Use: never Vitals/I&O/Wt Last Vital Signs Temp 97.5 F L 08/28/22 10:08 Pulse 83 08/28/22 14:50 Resp 15 08/28/22 14:50 BP 174/99 08/28/22 14:50 Pulse Ox 90 08/28/22 14:50 O2 Del Method 08/28/22 10:08 Weight last 48 hrs Weight 113.398 kg Physical Exam Const: COMMON NORMALS: no acute distress and patient oriented x3 HENMT: OTHER: Bilateral Rhino Rocket's in place Posterior pharynx, no blood visualized Mallampti stage II Eye: COMMON NORMALS: Equal, round and reactive pupils present Neck/C-Spine: COMMON NORMALS: full ROM and no lymphadenopathy Lymph: LYMPHATIC: no lymphadenopathy noted Chest: COMMONS NORMALS: normal inspection of the chest Resp: COMMON NORMALS: normal respiratory effort, No retractions, No use of accessory muscles and clear to auscultation bilaterally AUSCULTATION: clear to auscultation bilaterally Cardio: COMMON NORMALS: regular rate, regular rhythm, S1 normal heart sound present and S2 normal heart sound present RATE: regular rate RHYTHM: regular rhythm HEART SOUNDS: S1 normal heart sound present and S2 normal heart sound present GI: COMMON NORMALS: Normal to inspection, nondistended, normoactive bowel sounds present, Soft to palpation, non-tender and no masses PALPATION: Yes Soft to palpation and Yes No hepatosplenomegaly present Extremity: COMMON NORMALS: no calf tenderness and no pedal edema Neuro: COMMON NORMALS: patient oriented x3, CN's II-XII intact bilaterally, moves all extremities and no focal motor deficits Psych: COMMON NORMALS: mental status grossly normal Data 08/28/22 11:14 08/28/22 11:14 A&P Assessment and plan (1) Cardiac arrest: (2) Epistaxis: (3) Aspiration of blood: Plan Epistaxis -We will check INR -Hold aspirin, Plavix -Rhino Rocket's in place, will continue -Continue antibiotics Augmentin -Monitor for recurrent aspiration event, or bloody vomit if so we will speak to Dr. Shannon -Aspiration precautions -Monitor vitals -Full code, agreeable to elective intubation if required to protect airway, if recurrent aspiration events -SCDs for DVT prophylaxis Cardiac arrest -From aspiration of blood, -Successful ROSC -Alert oriented x3, following all commands, on room air, hypertensive -EKG no acute ST-T wave changes -Serial EKGs or troponins telemetry monitoring Attestations Medical Necessity Statement*: Patient requires hospitalization for epistaxis, cardiac arrest, aspiration of blood Diagnoses Cardiac arrest I46.9 Epistaxis R04.0 Aspiration of blood
[2022-08-28 16:01] LABS: INR 0.97 (0.8-1.2)
--- NOTE | 2022-08-28 17:29 | ECG_ITS ---
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 Measurements Intervals [place] Rate: 92 P: 107 [place]: 147 QRS: -24 QRSD: 83 T: 108 QT: 327 QTc: 404 Interpretive Statements SINUS RHYTHM POSSIBLE LEFT ATRIAL ENLARGEMENT [-0.1mV P-WAVE IN V1/V2] BORDERLINE LEFT AXIS DEVIATION [QRS AXIS < -20] NONSPECIFIC T-WAVE ABNORMALITY Compared to ECG 08/28/2022 13:35:08 T-wave abnormality now present Sinus tachycardia no longer present Electronically Signed On 08-28-2022 23:51:52 CDT by Moises Saeed M.D. [email or web address] [facility].De Correspondent/store/OM/[id number]
[2022-08-28 18:12] LABS: Troponin 5 6HR 27.63 ng/L (0-15)
--- NOTE | 2022-08-28 18:13 | PM.CONSULT ---
Providers/Reason For Consult Consulting Physician/Specialty*: Dr. Cirilo Shannon MD Otolaryngology, Head & Neck Surgery Reason for Consult*: Epistaxis Requesting Physician: Dr. Gregorio Bah MD Primary Care Provider: Leoncio Moulton DO History of Present Illness History of Present Illness Duong Lei is a 72 year old male who was admitted through the [facility] ER for bilateral epistaxis. The patient takes Plavix and aspirin for a h/o a CVA. The patient aspirated blood and vomited blood, but the epistaxis was well controlled with nasal packing placed in the ER. I was consulted to assist in management. The patient is currently without c/o, and denies any oral or nasal bleeding. Review of Systems General: Reports: 10 or more systems reviewed and unremarkable except in HPI and below Medications/Allergies Home Medications Medication Instructions Recorded Confirmed Last Taken Type acetaminophen 650 mg 650 mg PO DAILY PRN Pain 09/21/21 08/28/22 Unknown History tablet,extended release (Tylenol Arthritis Pain) allopurinol 300 mg tablet 300 mg PO DAILY 09/21/21 08/28/22 08/27/22 History aspirin 81 mg tablet,delayed 81 mg PO DAILY 09/21/21 08/28/22 08/27/22 History release cholecalciferol (vitamin D3) 125 125 mcg PO DAILY 09/21/21 08/28/22 08/27/22 History mcg (5,000 unit) capsule clopidogrel 75 mg tablet 75 mg PO DAILY 09/21/21 08/28/22 08/27/22 History omeprazole 20 mg capsule,delayed 20 mg PO DAILY 09/21/21 08/28/22 08/27/22 History release hydrocodone 5 mg-acetaminophen 325 1 tab PO Q8H PRN pain 1 month #60 12/28/21 08/28/22 Unknown Rx mg tablet tabs albuterol sulfate 90 mcg/actuation 2 puff inhalation 6XD PRN 01/26/22 08/28/22 Unknown Rx aerosol inhaler shortness of breath or wheezing 30 days #8.5 grams mycophenolate mofetil 500 mg 500 mg PO BID #60 tabs 07/04/22 08/28/22 08/27/22 Rx tablet (CellCept) tofacitinib 5 mg tablet (Xeljanz) 5 mg PO BID #60 tabs 07/04/22 08/28/22 08/27/22 Rx amlodipine 10 mg tablet 5 mg PO DAILY 08/10/22 08/28/22 08/27/22 History levothyroxine 50 mcg capsule 50 mcg PO DAILY #90 caps 08/14/22 08/28/22 08/27/22 Rx losartan 50 mg tablet 50 mg PO DAILY #90 tabs 08/16/22 08/28/22 08/24/22 Rx Allergies Allergy/AdvReac Type Severity Reaction Status Date / Time duloxetine [From Cymbalta] Allergy Unknown Verified 07/04/22 10:46 oxycodone Allergy Unknown Verified 08/28/22 12:22 PFSH Acute PFSH: Medical History Abnormal antibody titer + MDA-5 ab Arthritis Carotid artery obstruction GERD (gastroesophageal reflux disease) Gout High risk medication use HTN (hypertension) Hypothyroid Immunization counseling Insomnia Seropositive rheumatoid arthritis of multiple sites Stroke Surgical History No pertinent past surgical history Family History Brother Diabetes Social History Smoking and tobacco status: never smoked Quit status (tobacco): has quit using tobacco Year quit tobacco: 2016 Former quit date comment: 1 ppd X 57 years Alcohol intake: current Substance/Drug Use: never Vitals/I&O/Wt Last Vital Signs Temp 97.5 F L 08/28/22 10:08 Pulse 83 08/28/22 14:50 Resp 15 08/28/22 14:50 BP 174/99 08/28/22 14:50 Pulse Ox 90 08/28/22 14:50 O2 Del Method 08/28/22 10:08 Weight last 48 hrs Weight 113.398 kg Physical Exam Const: COMMON NORMALS: no acute distress GENERAL APPEARANCE: cooperative HENMT: COMMON NORMALS: normocephalic, atraumatic and hearing grossly normal bilaterally HEAD & SCALP: normocephalic and atraumatic FACE & SINUS: normal facial exam NOSE: Other nasal findings present (There are nasal packs in place with no nasal or oral bleeding.) MOUTH: Normal oral and palatal mucosa present and other (No oral bleeding present.) Eye: COMMON NORMALS: Equal, round and reactive pupils present and conjunctivae normal CONJUNCTIVA: Yes conjunctivae normal PUPIL: Yes Equal, round and reactive pupils present Data 08/28/22 11:14 08/28/22 11:14 Attestation for Other Data: I personally reviewed and interpreted the following: Other data: Head CT Chest X Ray A&P Assessment and plan (1) Epistaxis: Impression: Bilateral epistaxis controlled with bilateral nasal packing Plan: - I recommend leaving the nasal packing in place for 5-7 days - I will remove at that point - I recommend IV antibiotics with gram positive coverage while nasal packing in place - I recommend oxygen therapy and monitored setting while nasal packing in place - I will follow with you Consult Attestations Medical Necessity Statement: I was consulted to assist in management of the patient's epistaxis Coding Level [facility] Care Code [facility] Ep[facility] R04.0
[2022-08-28 18:14] LABS: Troponin 5 6HR Delta 3.63 ng/L (0-12)
[2022-08-28] MEDS: hyDRALAzine 20 mg/mL INJ 1 mL 10 MG IVP (19:33)
--- NOTE | 2022-08-28 19:49 | PC.NURSE ---
Report from Marcus Pearl Pt BP is elevated. Dr. Menjivar notified. Verbal order for hydralazine, which was given.
[2022-08-28] MEDS: sodium chloride 0.9% 1,000 ML 100 ML IV (20:55)
[2022-08-28] MEDS: lanolin oint 7 gm 1 APPLIC TOPICAL (20:58)
[2022-08-28] MEDS: pantoprazole 40 mg SDV IVP (20:58)
[2022-08-28] MEDS: vancomycin 1,250 MG/250 ML PIGGYBACK 250 MG IV (21:01)
[2022-08-28] MEDS: morphine 4 mg/mL SDV 1 mL 1 MG IVP (23:11)
[2022-08-29] VITALS (11 sets, daily range): BP systolic 159–190; BP diastolic 79–89; PULSE 67–110; RESP 16–18; TEMP 36.6–37.1; O2SAT 92–96
[2022-08-29] MEDS: morphine 4 mg/mL SDV 1 mL 1 MG IVP ×2 (02:57→08:10)
[2022-08-29 05:07] LABS: Basophils % 0.2 %; Hematocrit 38.2 % (42.0-52.0); Hemoglobin 12.3 g/dL (11.7-16.6); Lymphocytes # 0.8 10^3/uL (0.8-4.8); Lymphocytes % 4.3 %; Mean Corpuscular HGB Conc 32.2 g/dL (30.0-36.0); Mean Corpuscular Hemoglobin 31.5 pg (28.0-34.0); Mean Corpuscular Volume 97.7 fl (80-94); Mean Platelet Volume 11.6 fL (7.4-10.4); Monocytes # 1.1 10^3/uL (0.2-0.9); Monocytes % 6.2 %; Neutrophils # 15.97 10^3/uL (1.8-7.7); Neutrophils % 88.6 %; Nucleated Red Blood Cells % 0 %; Platelet Count 261 10^3/cmm (130-400); Red Blood Count 3.91 10^6/uL (4.1-5.3); Red Cell Distribution Width 13.2 % (12.1-15.1)
[2022-08-29 05:24] LABS: INR 0.99 (0.8-1.2)
[2022-08-29 05:35] LABS: Anion Gap 19.6 (5-19); Blood Urea Nitrogen 35 mg/dL (8-23); Calcium 8.5 mg/dL (8.5-10.5); Carbon Dioxide 20 mmol/L (22-29); Chloride 103 mmol/L (98-107); Glucose 111 mg/dL (65-115); Osmolality Calculated 295 mOsm/kg (285-295); Potassium 4.6 mmol/L (3.5-5.1); Sodium 138 mmol/L (136-145)
[2022-08-29] MEDS: sodium chloride 0.9% 1,000 ML 100 ML IV ×2 (06:41→16:26)
[2022-08-29] MEDS: amlodipine 10 mg Tablet 5 MG PO (08:08)
[2022-08-29] MEDS: levothyroxine 50 mcg Tablet PO (08:08)
[2022-08-29] MEDS: allopurinol 300 mg Tablet PO (08:08)
[2022-08-29] MEDS: piperacillin-tazobactam 3.375 GM in sodium chloride 0.9% (plus) 50 ML IV ×2 (08:30→18:13)
[2022-08-29] MEDS: acetaminophen 325 mg Tablet 650 MG PO ×2 (09:56→16:27)
--- NOTE | 2022-08-29 10:19 | PC.CHAP ---
Pastoral Care Encounter/Spiritual Assessment Type of Contact [] Declined electroplating worker visit [] Patient/Family/Request visit [] Outpatient visit [] Follow-up visit [] Physician referral [] Code/Alert [x] Routine visit [] Staff referral [] Actively dying [] Patient sleeping [] Family support [] [] Out of room [] Palliative care [] [] Receiving care in room [] Pre-surgical visit [] Trauma [] Long length of stay [] ICU visit [] Other: Relational/Emotional Strength [x] Patient feels connected with others/family/visitors/staff [] Distress [] Loneliness/isolation [] Abandonment Spirituality of Patient [x] Person of Randa [] Attends Restorationist of their Randa [x] Believes in Prayer [] Reads Bible or Temple materials [] There are Spiritual issues to be addressed Spring Production Supervisor Interventions [x] Prayer [] Active listening [] Non-anxious presence [x] Spiritual/emotional support [] Crisis/trauma care [] Spiritual counseling [] Bereavement support [] Provided bereavement packet [] Provided Bible/devotional materials [] Provided toy/stuffed animal, coloring book to patient or family member [] Provided Communion [] Anointing/[place] [] Salvation [x] Completed spiritual assessment [] Other: Impact on Illness or Injury [] Angry [] Fearful [] Anxious [] Often cries [] Exhaustion [] Unable to work [] Unable to attend hoahaoism [] Unable to walk/stand [] Unable to read [] Unable to drive [] Unable to eat/drink [] Unable to sleep [] Unable to be with family [] Patient intubated [] Other: Summary Time spent with patient 5 min
--- NOTE | 2022-08-29 10:19 | PC.NURSE ---
Notified Dr. Bah of patients sodium 125. Dr. Bah is going to recheck at noon. Will know whether patient is discharged bases on noon sodium results. Spoke with daughter per Dr. Bah.
--- NOTE | 2022-08-29 10:54 | XR_ITS ---
WS: [id number] EXAMINATION: XR chest 1V portable [id number] REASON FOR EXAM: sob COMPARISON: 08/28/2022 ORDER DATE: 08/29/2022 11:08 AM TECHNIQUE: A single, portable frontal chest x-ray was obtained. X-RAY FINDINGS: Unchanged nodule in the left lung since recent previous study. Pleural spaces are clear. No pleural e ffusions or pneumothorax. Cardiomediastinal silhouette is normal. No evidence for pulmonary edema. Soft tissue and osseous structures are unremarkable. Lower to midthoracic spinal stimulator noted XR/XR chest 1V portable [id number] IMPRESSION: No change from previous study on 08/28/2022
--- NOTE | 2022-08-29 10:54 | USCV_ITS ---
Duong Lei Age: 72 Gender: M : 1950 Exam Date: 08/29/2022 13:54 Ordering Phys: Gregorio Bah MD Technologist: Exam Location: [facility] [place] Indication: post code BP: 134 / 72 HR: 94 Rhythm: Sinus Technical Quality: Adequate MEASUREMENTS (Male / Female) Normal Values 2D ECHO LV Diastolic Diameter PLAX 3.4 cm 4.2 - 5.9 / 3.9 - 5.3 cm LV Systolic Diameter PLAX 2.4 cm IVS Diastolic Thickness 1.5 cm 0.6 - 1.0 / 0.6 - 0.9 cm IVS Systolic Thickness 1.1 cm LVPW Diastolic Thickness 1.3 cm 0.6 - 1.0 / 0.6 - 0.9 cm LVPW Systolic Thickness 2.0 cm LVOT Diameter 2.0 cm LV Ejection Fraction 2D Teich 54.6 % LV Ejection Fraction MOD 2C 58.7 % LV Ejection Fraction 2C AL 58.5 % LA Diameter 3.8 cm Aorta at Sinotubular Diameter 2.9 cm M-MODE Aortic Annulus Diameter 3.4 cm LA Ao Ratio MM 1.3 MV E Point Septal Separation 1.1 cm DOPPLER AV Peak Velocity 134.0 cm/s LVOT Peak Velocity 99.0 cm/s AV Area Cont Eq vti 2.2 cm squared AV Area Cont Eq pk 2.3 cm squared MV Area PHT 5.0 cm squared Mitral E to A Ratio 0.8 MV E' Velocity 43.0 cm/s Mitral E to MV E' Ratio 9.3 Mitral E to LV E' Lateral Ratio 9.3 Mitral E to LV E' Septal Ratio 9.5 TR Peak Velocity 119.0 cm/s TR Peak Gradient 5.7 mmHg TV Peak E Velocity 80.0 cm/s Right Atrial Pressure 3.0 mmHg Pulmonary Artery Systolic Pressu 8.7 mmHg RV Acceleration Time 0.1 s FINDINGS Left Ventricle Left ventricle is normal in size. LV systolic function is normal with EF 60-65%. No regional wall motion abnormalities. Grade 1 diastolic dysfunction Right Ventricle Normal in size and function Right Atrium Normal in size Left Atrium Normal in size Mitral Valve Structurally normal mitral valve. Trace mitral regurgitation. Aortic Valve Grossly normal. No significant stenosis or regurgitation. Tricuspid Valve Trace tricuspid regurgitation. Insufficient TR jet to calculate RVSP Pulmonic Valve Not well visualized Pericardium Normal Aorta Normal in size IVC Appears to be normal CONCLUSIONS LV systolic function is normal with EF of 60-65%. Grade 1 diastolic dysfunction Trace mitral regurgitation Trace tricuspid regurgitation Compared to prior echocardiogram from 10/2021, no significant changes are seen Jatinder Ballard MD (Electronically Signed) Final Date: 30 August 2022 11:09 S
[2022-08-29] MEDS: TRAMadol 50 mg Tablet PO ×2 (11:40→20:30)
--- NOTE | 2022-08-29 12:02 | P.PN_ITS ---
Subjective Subjective: patient was seen this morning, he denies any bloody vomit, no bloody cough, no bloody drainage from nasal packing, no fever, no chills, he has a headache, his chest is still sore from chest compression Vitals/I&O/Wt Last Vital Signs Temp 98.3 F 08/29/22 08:08 Pulse 67 08/29/22 08:08 Resp 107 H 08/29/22 08:10 BP 190/86 08/29/22 08:08 Pulse Ox 92 08/29/22 08:10 O2 Del Method 08/29/22 08:08 08/28/22 08/29/22 08/29/22 22:59 06:59 14:59 Intake Total 310 / 310 1216.667 / 1526.667 120 / 120 Balance 310 / 310 1216.667 / 1526.667 120 / 120 Weight last 48 hrs Weight 114.85 kg Weight 113.398 kg Physical Exam Const: COMMON NORMALS: no acute distress and patient oriented x3 HENMT: OTHER: bilateral rhinorockets in place Resp: COMMON NORMALS: normal respiratory effort, No retractions, No use of accessory muscles and clear to auscultation bilaterally AUSCULTATION: clear to auscultation bilaterally Cardio: COMMON NORMALS: regular rate, regular rhythm, S1 normal heart sound present and S2 normal heart sound present RATE: regular rate RHYTHM: regular rhythm HEART SOUNDS: S1 normal heart sound present and S2 normal heart sound present GI: COMMON NORMALS: Normal to inspection, nondistended, normoactive bowel sounds present and non-tender Extremity: COMMON NORMALS: no pedal edema Neuro: COMMON NORMALS: patient oriented x3 Psych: COMMON NORMALS: mental status grossly normal Data 08/29/22 04:22 08/29/22 04:22 Micro: Microbiology 08/29/22 08:52 Blood Culture - Preliminary Blood SPECIMEN COLLECTED 08/29/22 08:48 Blood Culture - Preliminary Blood SPECIMEN COLLECTED A&P Assessment and plan (1) NSTEMI (non-ST elevated myocardial infarction): (2) Aspiration pneumonia: (3) Leukocytosis: (4) Cardiac arrest: (5) Epistaxis: (6) Aspiration of blood: Plan Epistaxis -Hold aspirin, Plavix -Rhino Rocket's in place, will continue -Continue antibiotics vancomycin and zossyn -Monitor for recurrent aspiration event, or bloody vomit -Aspiration precautions -Monitor vitals -Dr. Shannon consulted -Full code, agreeable to elective intubation if required to protect airway, if recurrent aspiration events -SCDs for DVT prophylaxis Cardiac arrest -From aspiration of blood, -Successful ROSC -Alert oriented x3, following all commands, on room air, hypertensive -EKG no acute ST-T wave changes -Serial EKGs or troponins telemetry monitoring -will order cardiac echo NSTEMI -secondary to cardiac arrest episode and aspiration -will order cardiac echo Leukocytosis -procal, crp, blood cultures, urinalysis, chest xray Aspiration of blood/pneumonia -will order zosyn Attestations Medical Necessity Statement*: patient requires hospitalization for cardiac arrest, epistaxis, nstemi, leukocytosis, aspiration of blood and pneumoniae Coding Level of Care Code Acute Code for [facility] Diagnoses NSTEMI (non-ST elevated myocardial infarction) I21.4 Aspiration pneumonia J69.0 Leukocytosis D72.829 Cardiac arrest I46.9 Epistaxis R04.0 Aspiration of blood
[2022-08-29 12:07] LABS: Add Urine Microscopic? NO; Charge for UA Resulting for Rev
[2022-08-29 12:16] LABS: Bilirubin Urine Neg (Negative); Blood Urine Neg (Negative); Glucose Urine UA Norm (Normal); Ketones Urine Negative (Negative); Leukocyte Esterase Urine Negative (Negative); Nitrate Urine Negative (Negative); Protein Urine Neg (Negative); Specific Gravity, Urine 1.015 (1.005-1.030); Urine Appearance Clear (CLEAR); Urine Color Light yellow (Yellow); Urobilinogen Urine Neg (Negative); pH Urine 5 (5-7)
[2022-08-29 12:36] LABS: C Reactive Protein 9.6 mg/L (0.0-4.9)
[2022-08-29 12:43] LABS: Procalcitonin 0.14 ng/mL (0-0.5)
[2022-08-29] MEDS: perflutren protein-a microsphr 0.22 mg/mL SDV 3 mL IV (14:32)
[2022-08-29] MEDS: vancomycin 1,250 MG/250 ML PIGGYBACK 250 MG IV (15:44)
--- NOTE | 2022-08-29 17:54 | P.PN_ITS ---
Subjective Subjective: 72 yo wm who is HD #2 for [facility] c/o to include epistaxis. The patient has had bilateral nasal packing in place since admission. The patient denies any noted bleeding from his nose or mouth today. The patient is o/w without c/o. Medications: Reviewed: Yes Vitals/I&O/Wt Last Vital Signs Temp 98.8 F 08/29/22 12:09 Pulse 94 08/29/22 16:00 Resp 16 08/29/22 16:00 BP 173/89 08/29/22 16:00 Pulse Ox 96 08/29/22 16:00 O2 Del Method 08/29/22 12:09 08/29/22 08/29/22 08/29/22 06:59 14:59 22:59 Intake Total 1216.667 / 1526.667 360 / 360 1025 / 1385 Balance 1216.667 / 1526.667 360 / 360 1025 / 1385 Weight last 48 hrs Weight 114.85 kg Weight 113.398 kg Physical Exam Const: COMMON NORMALS: no acute distress, patient oriented x3, alert and well nourished HENMT: COMMON NORMALS: normocephalic, atraumatic, external ears normal and Normal external nose present HEAD & SCALP: normocephalic and atraumatic FACE & SINUS: normal facial exam NOSE: Normal external nose present and Other nasal findings present (There are bilateral nasal packs in place without noted bleeding.) EXTERNAL EAR: Yes external ears normal TEETH & GINGIVA: Yes other (No oral bleeding is noted. ) Neuro: COMMON NORMALS: patient oriented x3 SENSORIUM/ORIENTATION: Yes alert Data 08/29/22 04:22 08/29/22 04:22 Micro: Microbiology 08/29/22 08:52 Blood Culture - Preliminary Blood SPECIMEN COLLECTED 08/29/22 08:48 Blood Culture - Preliminary Blood SPECIMEN COLLECTED A&P Assessment and plan (1) Epistaxis: Impression: Hospital day/Nasal packing Day #2 for bilateral epistaxis - bleeding well controlled today Plan: - I recommend that the nasal packs be left in place until 09/01/22. The patient should remain as an inpatient until the nasal packs have been removed and the epistaxis is resolved - Continue IV antibiotics while his nasal packing is in place - Contact me for any recurrent nasal bleeding Attestations Medical Necessity Statement*: I was consulted to assist in managment of the patient's epistaxis. Coding Level of Care Code Acute Code for [facility] Diagnoses Epistaxis R04.0
[2022-08-29] MEDS: cloNIDine 0.1 mg Tablet PO (18:13)
[2022-08-29] MEDS: pantoprazole 40 mg SDV IVP (20:30)
[2022-08-30] VITALS (9 sets, daily range): BP systolic 130–185; BP diastolic 75–86; PULSE 78–97; RESP 16–18; TEMP 36.4–37.3; O2SAT 91–96
[2022-08-30] MEDS: piperacillin-tazobactam 3.375 GM in sodium chloride 0.9% (plus) 50 ML IV ×3 (01:15→17:29)
[2022-08-30] MEDS: sodium chloride 0.9% 1,000 ML 100 ML IV (02:38)
[2022-08-30] MEDS: TRAMadol 50 mg Tablet PO ×4 (02:50→20:26)
[2022-08-30 05:41] LABS: Basophils % 0.2 %; Eosinophils % 0.3 %; Hematocrit 32.4 % (42.0-52.0); Hemoglobin 10.5 g/dL (11.7-16.6); Lymphocytes # 0.7 10^3/uL (0.8-4.8); Lymphocytes % 5.2 %; Mean Corpuscular HGB Conc 32.4 g/dL (30.0-36.0); Mean Corpuscular Hemoglobin 31.6 pg (28.0-34.0); Mean Corpuscular Volume 97.6 fl (80-94); Mean Platelet Volume 11.6 fL (7.4-10.4); Monocytes # 1.2 10^3/uL (0.2-0.9); Monocytes % 8.9 %; Neutrophils # 11.19 10^3/uL (1.8-7.7); Nucleated Red Blood Cells % 0 %; Platelet Count 209 10^3/cmm (130-400); Red Blood Count 3.32 10^6/uL (4.1-5.3); Red Cell Distribution Width 13.3 % (12.1-15.1); White Blood Count 13.2 10^3/uL (4.0-10.0)
[2022-08-30 05:44] LABS: INR 0.99 (0.8-1.2)
[2022-08-30 06:04] LABS: Procalcitonin 0.16 ng/mL (0-0.5)
[2022-08-30 06:07] LABS: Anion Gap 14.5 (5-19); Blood Urea Nitrogen 22 mg/dL (8-23); C Reactive Protein 44.7 mg/L (0.0-4.9); Calcium 8.1 mg/dL (8.5-10.5); Carbon Dioxide 21 mmol/L (22-29); Chloride 106 mmol/L (98-107); Glucose 107 mg/dL (65-115); Osmolality Calculated 288 mOsm/kg (285-295); Potassium 4.5 mmol/L (3.5-5.1); Sodium 137 mmol/L (136-145)
[2022-08-30 06:09] LABS: Creatinine Clr Calc Pharmacy 68.1882
[2022-08-30] MEDS: amlodipine 10 mg Tablet 5 MG PO (08:39)
[2022-08-30] MEDS: allopurinol 300 mg Tablet PO (08:39)
[2022-08-30] MEDS: levothyroxine 50 mcg Tablet PO (08:39)
[2022-08-30] MEDS: cloNIDine 0.1 mg Tablet PO (08:39)
[2022-08-30] MEDS: vancomycin 1,250 MG/250 ML PIGGYBACK 250 MG IV (08:41)
[2022-08-30 09:18] LABS: Vancomycin Trough 9.3 ug/mL (10-15)
[2022-08-30] MEDS: chlorthalidone 25 mg Tablet PO (10:34)
--- NOTE | 2022-08-30 11:45 | PC.PHAR ---
PHARMACY TO DOSE CONSULT The patient's trough came back slightly low at 9.3. After re-calculating the patient's profile, we have increased the dose to 2000mg and kept the same frequency of every 18 hours. Will continue to monitor the patient's renal function and make adjustments accordingly. Let us know if there is anything else we can do. Thanks, Kel Jauregui, Pharm.D
[2022-08-30] MEDS: acetaminophen 325 mg Tablet 650 MG PO (13:12)
--- NOTE | 2022-08-30 13:29 | PM.PN ---
Subjective Subjective: Patient was seen this morning, family at bedside, he complains of some chest soreness and persistent headache, no bleeding from packing Vitals/I&O/Wt Last Vital Signs Temp 98.1 F 08/30/22 11:32 Pulse 91 08/30/22 11:32 Resp 16 08/30/22 11:32 BP 155/82 08/30/22 11:32 Pulse Ox 91 08/30/22 11:32 O2 Del Method Room Air 08/30/22 11:32 O2 Flow Rate 2 08/30/22 08:00 08/29/22 08/30/22 08/30/22 22:59 06:59 14:59 Intake Total 1924 / 5 1050 / 3335 370 / 370 Balance 1924 / 5 1050 / 3335 370 / 370 Weight last 48 hrs Weight 114.85 kg Physical Exam Const: COMMON NORMALS: no acute distress and patient oriented x3 HENMT: OTHER: Bilateral Rhino Rocket's Resp: COMMON NORMALS: normal respiratory effort, No retractions, No use of accessory muscles and clear to auscultation bilaterally AUSCULTATION: clear to auscultation bilaterally Cardio: COMMON NORMALS: regular rate, regular rhythm, S1 normal heart sound present and S2 normal heart sound present RATE: regular rate RHYTHM: regular rhythm HEART SOUNDS: S1 normal heart sound present and S2 normal heart sound present GI: COMMON NORMALS: Normal to inspection, nondistended, normoactive bowel sounds present and non-tender Extremity: COMMON NORMALS: no pedal edema Neuro: COMMON NORMALS: patient oriented x3 Psych: COMMON NORMALS: mental status grossly normal Data 08/30/22 04:16 08/30/22 04:16 Micro: Microbiology 08/29/22 08:52 Blood Culture - Preliminary Blood NEGATIVE TO DATE 08/29/22 08:48 Blood Culture - Preliminary Blood NEGATIVE TO DATE A&P Assessment and plan (1) NSTEMI (non-ST elevated myocardial infarction): (2) Aspiration pneumonia: (3) Leukocytosis: (4) Cardiac arrest: (5) Epistaxis: (6) Aspiration of blood: Plan Epistaxis -Hold aspirin, Plavix -Rhino Rocket's in place, will continue -Continue antibiotics vancomycin and zossyn -Monitor for recurrent aspiration event, or bloody vomit -Aspiration precautions -Monitor vitals -Dr. Shannon consulted -Full code, agreeable to elective intubation if required to protect airway, if recurrent aspiration events -SCDs for DVT prophylaxis, anticoagulation relatively contraindicated given severe epistaxis Cardiac arrest -From aspiration of blood, aspiration event -Successful ROSC -Alert oriented x3, following all commands, on room air, hypertensive -EKG no acute ST-T wave changes -Serial EKGs or troponins telemetry monitoring -?LV systolic function is normal with EF of 60-65%. ?Grade 1 diastolic dysfunction ?Trace mitral regurgitation ?Trace tricuspid regurgitation ?Compared to prior echocardiogram from 10/2021, no significant ?changes are seen -Has complaints of chest soreness NSTEMI -secondary to cardiac arrest episode and aspiration -As of above Leukocytosis - blood cultures, urinalysis Aspiration of blood/pneumonia -twila fernandez Plan for today up out of bed, epistaxis monitoring, telemetry monitoring Attestations Medical Necessity Statement*: Patient requires hospitalization for severe epistaxis, with cardiac arrest episode, NSTEMI, leukocytosis, aspiration of blood, pneumonia Diagnoses NSTEMI (non-ST elevated myocardial infarction) I21.4 Aspiration pneumonia J69.0 Leukocytosis D72.829 Cardiac arrest I46.9 Epistaxis R04.0 Aspiration of blood
[2022-08-30] MEDS: pantoprazole 40 mg SDV IVP (20:30)
[2022-08-31] VITALS (12 sets, daily range): BP systolic 109–167; BP diastolic 65–88; PULSE 73–117; RESP 15–18; TEMP 36.7–36.9; O2SAT 91–94
[2022-08-31] MEDS: piperacillin-tazobactam 3.375 GM in sodium chloride 0.9% (plus) 50 ML IV ×3 (04:23→20:10)
[2022-08-31 05:32] LABS: Basophils % 0.3 %; Eosinophils # 0.2 10^3/uL (0.0-0.8); Eosinophils % 1.6 %; Hematocrit 31.4 % (42.0-52.0); Hemoglobin 10.1 g/dL (11.7-16.6); Lymphocytes # 0.7 10^3/uL (0.8-4.8); Lymphocytes % 7.2 %; Mean Corpuscular HGB Conc 32.2 g/dL (30.0-36.0); Mean Corpuscular Hemoglobin 31.2 pg (28.0-34.0); Mean Corpuscular Volume 96.9 fl (80-94); Mean Platelet Volume 11.4 fL (7.4-10.4); Monocytes # 0.9 10^3/uL (0.2-0.9); Monocytes % 9.7 %; Neutrophils # 7.64 10^3/uL (1.8-7.7); Neutrophils % 80.8 %; Nucleated Red Blood Cells % 0 %; Platelet Count 178 10^3/cmm (130-400); Red Blood Count 3.24 10^6/uL (4.1-5.3); Red Cell Distribution Width 13.1 % (12.1-15.1); White Blood Count 9.5 10^3/uL (4.0-10.0)
[2022-08-31 05:44] LABS: INR 1.01 (0.8-1.2)
[2022-08-31 06:01] LABS: Procalcitonin 0.14 ng/mL (0-0.5)
[2022-08-31 06:13] LABS: Anion Gap 16.3 (5-19); Blood Urea Nitrogen 15 mg/dL (8-23); C Reactive Protein 65.4 mg/L (0.0-4.9); Calcium 8.4 mg/dL (8.5-10.5); Carbon Dioxide 21 mmol/L (22-29); Chloride 104 mmol/L (98-107); Glucose 104 mg/dL (65-115); Osmolality Calculated 285 mOsm/kg (285-295); Potassium 4.3 mmol/L (3.5-5.1); Sodium 137 mmol/L (136-145)
[2022-08-31] MEDS: chlorthalidone 25 mg Tablet PO (08:15)
[2022-08-31] MEDS: levothyroxine 50 mcg Tablet PO (08:16)
[2022-08-31] MEDS: amlodipine 10 mg Tablet PO (08:16)
[2022-08-31] MEDS: allopurinol 300 mg Tablet PO (08:16)
[2022-08-31] MEDS: cloNIDine 0.1 mg Tablet PO ×2 (08:16→18:31)
[2022-08-31] MEDS: lisinopril 10 mg Tablet PO (08:26)
[2022-08-31] MEDS: polyethylene glycol 3350 Pkt 17 gm PO (09:55)
--- NOTE | 2022-08-31 11:07 | PC.SOCIAL ---
IMM UPDATED IMM dated and initialed and copy placed in chart and copy given to patient.
--- NOTE | 2022-08-31 15:36 | P.PN_ITS ---
Subjective Subjective: Patient was seen this morning, he tells me that he needs to have a bowel movement today Vitals/I&O/Wt Last Vital Signs Temp 98.1 F 08/31/22 12:00 Pulse 85 08/31/22 14:00 Resp 16 08/31/22 12:00 BP 121/72 08/31/22 12:00 Pulse Ox 92 08/31/22 12:00 O2 Del Method Room Air 08/31/22 08:00 O2 Flow Rate 2 08/30/22 20:47 08/31/22 08/31/22 08/31/22 06:59 14:59 22:59 Intake Total 500 / 1330 650 / 650 Balance 500 / 1330 650 / 650 Physical Exam Const: COMMON NORMALS: no acute distress and patient oriented x3 Resp: COMMON NORMALS: normal respiratory effort, No retractions, No use of accessory muscles and clear to auscultation bilaterally AUSCULTATION: clear t o auscultation bilaterally Cardio: COMMON NORMALS: regular rate, regular rhythm, S1 normal heart sound present and S2 normal heart sound present RATE: regular rate RHYTHM: regular rhythm HEART SOUNDS: S1 normal heart sound present and S2 normal heart sound present GI: COMMON NORMALS: Normal to inspection, nondistended, normoactive bowel sounds present and non-tender Extremity: COMMON NORMALS: no pedal edema Neuro: COMMON NORMALS: patient oriented x3 Psych: COMMON NORMALS: mental status grossly normal Data 08/31/22 05:11 08/31/22 05:11 A&P Assessment and plan (1) NSTEMI (non-ST elevated myocardial infarction): (2) Aspiration pneumonia: (3) Leukocytosis: (4) Cardiac arrest: (5) Epistaxis: (6) Aspiration of blood: Plan Epistaxis -Hold aspirin, Plavix, will have to hold for at least 2 weeks depending on discussion with Dr. Owusu -Rhino Rocket's in place, will continue -Continue antibiotics vancomycin and zossyn -Monitor for recurrent aspiration event, or bloody vomit -Aspiration precautions -Monitor vitals -Dr. Shannon consulted -Full code, agreeable to elective intubation if required to protect airway, if recurrent aspiration events -SCDs for DVT prophylaxis, anticoagulation relatively contraindicated given severe epistaxis -He was advised that he should continue to be mobile, as he has increased risk of developing blood clots, Cardiac arrest -From aspiration of blood, aspiration event -Successful ROSC -Alert oriented x3, following all commands, on room air, hypertensive -EKG no acute ST-T wave changes -Serial EKGs or troponins telemetry monitoring -?LV systolic function is normal with EF of 60-65%. ?Grade 1 diastolic dysfunction ?Trace mitral regurgitation ?Trace tricuspid regurgitation ?Compared to prior echocardiogram from 10/2021, no significant ?changes are seen -Has complaints of chest soreness NSTEMI -secondary to cardiac arrest episode and aspiration -As of above Leukocytosis - blood cultures, urinalysis Aspiration of blood/pneumonia -twila fernandez Plan for today up out of bed, epistaxis monitoring, telemetry monitoring, will give bowel regimen Attestations 2 Medical Necessity Statement*: Patient requires hospitalization for severe epistaxis, event of cardiac arrest, aspiration pneumonia, Coding Level of Care Code 88584 Moderate MDM includes number and complexity of problems actively addressed during encounter, amount and/or complexity of data reviewed/ordered and described risk of complication, morbidity or mortality of management as documen theodora Diagnoses NSTEMI (non-ST elevated myocardial infarction) I21.4 Aspiration pneumonia J69.0 Leukocytosis D72.829 Cardiac arrest I46.9 Epistaxis R04.0 Aspiration of blood
[2022-08-31] MEDS: TRAMadol 50 mg Tablet PO (20:09)
[2022-08-31] MEDS: pantoprazole 40 mg SDV IVP (21:01)
[2022-09-01] VITALS (10 sets, daily range): BP systolic 107–142; BP diastolic 60–79; PULSE 62–75; RESP 11–18; TEMP 36.8–37.1; O2SAT 92–94
[2022-09-01] MEDS: piperacillin-tazobactam 3.375 GM in sodium chloride 0.9% (plus) 50 ML IV ×2 (04:53→13:03)
[2022-09-01 05:15] LABS: Basophils % 0.3 %; Eosinophils # 0.1 10^3/uL (0.0-0.8); Eosinophils % 1.9 %; Hematocrit 28.2 % (42.0-52.0); Hemoglobin 9.3 g/dL (11.7-16.6); Lymphocytes # 0.9 10^3/uL (0.8-4.8); Lymphocytes % 12.5 %; Mean Corpuscular Hemoglobin 31.3 pg (28.0-34.0); Mean Corpuscular Volume 94.9 fl (80-94); Mean Platelet Volume 11.4 fL (7.4-10.4); Monocytes # 0.9 10^3/uL (0.2-0.9); Monocytes % 11.8 %; Neutrophils # 5.43 10^3/uL (1.8-7.7); Neutrophils % 73.1 %; Nucleated Red Blood Cells % 0 %; Platelet Count 176 10^3/cmm (130-400); Red Blood Count 2.97 10^6/uL (4.1-5.3); White Blood Count 7.4 10^3/uL (4.0-10.0)
[2022-09-01 05:31] LABS: Blood Urea Nitrogen 15 mg/dL (8-23); Calcium 8.3 mg/dL (8.5-10.5); Carbon Dioxide 22 mmol/L (22-29); Chloride 105 mmol/L (98-107); Glucose 100 mg/dL (65-115); Osmolality Calculated 287 mOsm/kg (285-295); Sodium 138 mmol/L (136-145)
[2022-09-01 05:34] LABS: Anion Gap 15.3 (5-19); Potassium 4.3 mmol/L (3.5-5.1)
--- NOTE | 2022-09-01 07:00 | P.PN_ITS ---
Subjective Subjective: 72 yo wm with a h/o bilateral epistaxis with nasal packing in place. The patient has not had any bleeding since the nasal packing was placed. He is without c/o. Medications: Reviewed: Yes Vitals/I&O/Wt Last Vital Signs Temp 98.4 F 09/01/22 04:00 Pulse 64 09/01/22 06:00 Resp 12 09/01/22 04:00 BP 120/71 09/01/22 04:00 Pulse Ox 93 09/01/22 04:00 O2 Del Method Room Air 09/01/22 04:00 O2 Flow Rate 2 08/30/22 20:47 08/31/22 09/01/22 09/01/22 22:59 06:59 14:59 Intake Total 410 / 1060 790 / 1850 Balance 410 / 1060 790 / 1850 Physical Exam Const: COMMON NORMALS: no acute distress, patient oriented x3 and alert GENERAL APPEARANCE: cooperative HENMT: COMMON NORMALS: normocephalic, atraumatic, external ears normal and Normal external nose present HEAD & SCALP: normocephalic and atraumatic FACE & SINUS: normal facial exam and other (Nasal packing is in place bilaterally. ) NOSE: Normal external nose present and Epistaxis present (There is no bleeding present. ) EXTERNAL EAR: Yes external ears normal Eye: COMMON NORMALS: Equal, round and reactive pupils present, EOMs intact bilaterally and no scleral icterus PUPIL: Yes Equal, round and reactive pupils present Neck/C-Spine: COMMON NORMALS: no lymphadenopathy and supple Neuro: COMMON NORMALS: patient oriented x3 SENSORIUM/ORIENTATION: Yes alert Data 09/01/22 04:58 09/01/22 04:58 A&P Assessment and plan (1) Epistaxis: Impression: Epistaxis, now resolved and the nasal packing has been removed Plan: - Nasal packing removed as above - Begin Afrin: 2 sprays/nostril Qhour today, then 4 sprays QID x 4 days, then change to OTC nasal saline spray TID for 3 months - The patient is cleared for d/c from my standpoint if his epistaxis does not recur after 8 hours of observation - The patient is to f/u in my office in one week - we will contact him for an appointment. Attestations Medical Necessity Statement*: I was contacted to assist in the management of Mr. Lei's epistaxis. Procedures Procedure Narrative Nasal Packing Removal: verbal informed consent was obtained; the nasal packing was removed bilaterally and the patient's nose was sprayed vigously with Afrin bilaterally; the patient tolerated pack removal well and there was no recurrence of bleeding. Coding Level of Care Code Acute Code for [facility] F[facility] Diagnoses Epistaxis R04.0
[2022-09-01] MEDS: cloNIDine 0.1 mg Tablet PO (09:06)
[2022-09-01] MEDS: allopurinol 300 mg Tablet PO (09:06)
[2022-09-01] MEDS: chlorthalidone 25 mg Tablet PO (09:06)
[2022-09-01] MEDS: levothyroxine 50 mcg Tablet PO (09:06)
[2022-09-01] MEDS: lisinopril 10 mg Tablet PO (09:06)
[2022-09-01] MEDS: amlodipine 10 mg Tablet PO (09:06)
[2022-09-01] MEDS: acetaminophen 325 mg Tablet 650 MG PO (09:43)
--- NOTE | 2022-09-01 11:02 | PC.CHAP ---
Pastoral Care Encounter/Spiritual Assessment Type of Contact [] Declined drum carrier visit [] Patient/Family/Request visit [] Outpatient visit [] Follow-up visit [] Physician referral [] Code/Alert [x] Routine visit [] Staff referral [] Actively dying [] Patient sleeping [] Family support [] [] Out of room [] Palliative care [] [] Receiving care in room [] Pre-surgical visit [] Trauma [] Long length of stay [] ICU visit [] Other: Relational/Emotional Strength [] Patient feels connected with others/family/visitors/staff [] Distress [] Loneliness/isolation [] Abandonment Spirituality of Patient [] Person of Randa [] Attends Mormon of their Randa [] Believes in Prayer [] Reads Bible or Anglican materials [] There are Spiritual issues to be addressed Cloth Bale Header Interventions [x] Prayer [] Active listening [] Non-anxious presence [] Spiritual/emotional support [] Crisis/trauma care [] Spiritual counseling [] Bereavement support [] Provided bereavement packet [] Provided Bible/devotional materials [] Provided toy/stuffed animal, coloring book to patient or family member [] Provided Communion [] Anointing/[place] [] Salvation [x] Completed spiritual assessment [] Other: Impact on Illness or Injury [] Angry [] Fearful [] Anxious [] Often cries [] Exhaustion [] Unable to work [] Unable to attend temple [] Unable to walk/stand [] Unable to read [] Unable to drive [] Unable to eat/drink [] Unable to sleep [] Unable to be with family [] Patient intubated [] Other: Summary patient in lots o f pain notified nurse Time spent with patient 5 min
--- NOTE | 2022-09-01 11:13 | P.DS_ITS ---
Discharge Providers Date of Admission: 08/28/22 18:42 Date of Discharge: September 01, 2022 Attending Provider at Admission: Gregorio Bah MD Attending Provider at Discharge: Gregorio Bah MD Primary Care Provider: Leoncio Moulton DO Diagnoses at Discharge Discharge Diagnosis (1) Epistaxis: Status: Acute Reason for Visit Reason for Visit: nosebleed Hospital Course Hospital Course Duong Lei is a 72 year old male with history of hypothyroidism, history of CVA, hypertension, carotid artery obstruction, emphysema history of interstitial lung disease, history of myopathic polymyositis, rheumatoid arthritis.? Who is on aspirin and Plavix for his history of CVA who presents [facility] for significant epistaxis.? He woke up around 8 AM, noticed that he started getting up getting epistaxis.? In the emergency room he continued to have epistaxis, I was told by ER staff he had significant episode of bloody vomitus with significant aspiration event, resulting in apnea, loss of pulse and cardiac arrest, he received roughly 20 to 30 seconds of CPR, with echocardiogram EF 60 no medications required, no intubation required, he was alert and awake right after.? He had bilateral Rhino Rocket's placed, which were removed, received oxy metolazone, then bilateral Rhino Rocket's were replaced.? He had another episode of bloody vomitus.? He is alert and awake, he has received morphine and Ativan, he is on room air, normotensive, denies any chest pain but his chest is sore after the CPR he received.? Denies any shortness of breath, lightheadedness, dizziness.? He has received Ativan and morphine so he is a bit drowsy.? Patient's daughter and are at bedside.? I had an extensive discussion with Dr. Shannon multiple times, about patient's case, about his recurrent bloody vomitus episodes, recommended inflating the Rhino Rocket fu rther with saline, recommended continued monitoring, medical management, and would avoid surgery unless absolutely necessary Patient was admitted to [facility] for life-threatening epistaxis, his aspirin, Plavix were held, ENT was consulted, bilateral Rhino Rocket's in place, during his hospitalization, no recurrent nasal bleeds, Rhino Rocket's were removed 09/01/2022, without any recurrent episodes of bleeding, also managed with broad-spectrum antibiotic therapy, cultures so far negative. Patient will follow-up with Dr. Shannon as outpatient if any recurrent nasal bleeds go to the em ergency room. He was treated with IV antibiotics for aspiration of blood, aspiration pneumonia, discharged on 3 more days of Augmentin Patient's cardiac arrest episode, likely secondary from aspiration event/aspiration of blood, echocardiogram showed EF of 60 to 65%, no arrhythmia events during hospitalization, discharged with a follow-up with Dr. Reynolds Patient had chest wall discomfort from the CPR that he received for 20 to 30 seconds, possibly having evidence of rib fracture. I advised him to continue to do respiratory exercises, continue to be ambulatory, deep breathing exercises, monitor for pneumonias, use tramadol sparingly for pain. In terms of antiplatelet therapy, patient takes aspirin and Plavix for a stroke he had in 2017, no history of stenting, no history of carotid artery disease. no cad history. I discussed with him antiplatelet therapy and is life-threatening epistaxis, with cardiac arrest. He has not had any recurrent epistaxis episodes, but his risk of bleeding is quite high in the short-term with antiplatelet therapy. But certainly he takes aspirin and Plavix for history of strokes, no recurrent episodes of stroke or TIA since 2017, but holding the medi cation certainly does have a risk of stroke. Certainly this is a difficult decision to make, but he has had a significant life-threatening epistaxis with significant aspiration and cardiac arrest episodes, so I think it would be reasonable to hold aspirin Plavix for at least 2 weeks until he follows up with Dr. Shannon and Dr. Reynolds. After shared decision-making, discussed risk and benefits of all options, he voiced understanding, all questions answered, agreed to hold aspirin and Plavix for at least 2 weeks. NINA, creatinine discharge 1.5 Physical Exam Const: COMMON NORMALS: no acute distress and patient oriented x3 HENMT: OTHER: Nasal sinuses, bilateral, dried blood, Resp: COMMON NORMALS: normal respiratory effort, No retractions, No use of accessory muscles and clear to auscultation bilaterally AUSCULTATION: clear to auscultation bilaterally Cardio: COMMON NORMALS: regular rate, regular rhythm, S1 normal heart sound present and S2 normal heart sound present RATE: regular rate RHYTHM: regular rhythm HEART SOUNDS: S1 normal heart sound present and S2 normal heart sound present GI: COMMON NORMALS: Normal to inspection, nondistended, normoactive bowel sounds present and non-tender Extremity: COMMON NORMALS: no pedal edema Neuro: COMMON NORMALS: patient oriented x3 Psych: COMMON NORMALS: mental status grossly normal Discharge Data Studies Completed and Pending Completed Studies During Hospitalization Category Date Time Status CT head wo con* [id number] Stat Cat Scan 08/28/22 11:29 Completed XR chest 1V portable [id number] Routine Exams 08/29/22 10:54 Completed XR chest 1V portable [id number] Stat Exams 08/28/22 11:29 Completed CV. echo wo/w contrast [id number] Routine Ultrasound 08/29/22 10:54 Completed Pending at discharge Category Date Time Status Basic Metabolic Panel AM LABS Lab 09/02/22 04:00 Ordered Basic Metabolic Panel AM LABS Lab 09/03/22 04:00 Ordered Blood Culture Stat Lab 08/29/22 08:52 Results Complete Blood Count w/Auto AM LABS Lab 09/02/22 04:00 Ordered Complete Blood Count w/Auto AM LABS Lab 09/03/22 04:00 Ordered Sputum Culture and Gram Stain Stat Lab 08/29/22 08:02 Uncollected Radiology Impressions Head CT 08/28/22 11:29 IMPRESSION: 1. No evidence of intracranial hemorrhage or mass effect. 2. Mild small vessel changes. Moderate parenchymal volume loss. 3. Vascular calcification. 4. No acute intracranial findings. Chest X-Ray 08/29/22 10:54 IMPRESSION: No change from previous study on 08/28/2022 Laboratory Results WBC 7.4 10^3/uL (4.0-10.0) 09/01/22 04:58 RBC 2.97 10^6/uL (4.1-5.3) L 09/01/22 04:58 Hgb 9.3 g/dL (11.7-16.6) L 09/01/22 04:58 Hct 28.2 % (42.0-52.0) L 09/01/22 04:58 MCV 94.9 fl (80-94) H 09/01/22 04:58 MCH 31.3 pg (28.0-34.0) 09/01/22 04:58 MCHC 33.0 g/dL (30.0-36.0) 09/01/22 04:58 RDW 13.0 % (12.1-15.1) 09/01/22 04:58 Plt Count 176 10^3/cmm (130-400) 09/01/22 04:58 MPV 11.4 fL (7.4-10.4) H 09/01/22 04:58 Neut % (Auto) 73.1 % 09/01/22 04:58 Lymph % (Auto) 12.5 % 09/01/22 04:58 [place] % (Auto) 11.8 % 09/01/22 04:58 Eos % (Auto) 1.9 % 09/01/22 04:58 Baso % (Auto) 0.3 % 09/01/22 04:58 Neut # (Auto) 5.43 10^3/uL (1.8-7.7) 09/01/22 04:58 Lymph # (Auto) 0.9 10^3/uL (0.8-4.8) 09/01/22 04:58 [place] # (Auto) 0.9 10^3/uL (0.2-0.9) 09/01/22 04:58 Eos # (Auto) 0.1 10^3/uL (0.0-0.8) 09/01/22 04:58 Baso # (Auto) 0.0 10^3/uL (0.0-0.1) 09/01/22 04:58 Nucleated RBC % (auto) 0 % 09/01/22 04:58 Nucleated RBCs # 0.0 /100WBC 09/01/22 04:58 PT 13.60 SECONDS (12.1-14.9) 08/31/22 05:11 INR 1.01 (0.8-1.2) 08/31/22 05:11 Specimen Type Arterial 08/28/22 11:15 Sample Site Brachial, right 08/28/22 11:15 ABG pH 7.31 (7.35-7.45) L 08/28/22 11:15 ABG pCO2 34.4 mmHg (35-45) L 08/28/22 11:15 ABG pO2 82.5 mmHg (80.0-100.0) 08/28/22 11:15 ABG HCO3 17.4 mmol/L (22-26) L 08/28/22 11:15 ABG O2 Saturation 96.2 08/28/22 11:15 ABG Base Excess -7.9 mmol/L (-2.0-2.0) L 08/28/22 11:15 Curtis Test N/a 08/28/22 11:15 A-a O2 Gradient 3.3 mmHg (5-10) L 08/28/22 11:15 Hematocrit 45.1 % (42-52) 08/28/22 11:15 Hgb O2 Saturation 94.0 % (95-100) L 08/28/22 11:15 Carboxyhemoglobin 1.3 %THgb (0.4-20.1) 08/28/22 11:15 Methemoglobin 1.0 % (0.4-1.5) 08/28/22 11:15 Total Hemoglobin 14.7 g/dL (14-18) 08/28/22 11:15 Sodium 144.0 mmol/L (131-143) H 08/28/22 11:15 Potassium 3.7 mmol/L (3.5-5.0) 08/28/22 11:15 Glucose 159.0 mg/dL (70-115) H 08/28/22 11:15 Ionized Calcium 1.2 mmol/L (1.1-1.4) 08/28/22 11:15 O2 Delivery Device Room air 08/28/22 11:15 Upholsterer Apprentice ID Gd 08/28/22 11:15 Sodium 138 mmol/L (136-145) 09/01/22 04:58 Potassium 4.3 mmol/L (3.5-5.1) 09/01/22 04:58 Chloride 105 mmol/L (98-107) 09/01/22 04:58 Carbon Dioxide 22 mmol/L (22-29) 09/01/22 04:58 Anion Gap 15.3 (5-19) 09/01/22 04:58 BUN 15 mg/dL (8-23) 09/01/22 04:58 Creatinine 1.5 mg/dL (0.7-1.2) H 09/01/22 04:58 GFR Calculation Not Reportable 09/01/22 04:58 Glucose 100 mg/dL (65-115) 09/01/22 04:58 Calculated Osmolality 287 mOsm/kg (285-295) 09/01/22 04:58 Lactic Acid 1.4 mmol/L (0.5-2.2) 08/28/22 11:29 Calcium 8.3 mg/dL (8.5-10.5) L 09/01/22 04:58 Total Bilirubin 0.4 mg/dL (0.15-1.2) 08/28/22 11:14 AST 22 U/L (0-40) 08/28/22 11:14 ALT 27 U/L (0-41) 08/28/22 11:14 Alkaline Phosphatase 58 U/L (40-130) 08/28/22 11:14 Creatine Kinase 108 U/L (39-308) 08/28/22 11:29 Troponin T Baseline 24 ng/L (0-15) H 08/28/22 11:29 Troponin T 120 Minute 23.44 ng/L (0-15) H 08/28/22 13:20 Delta Troponin T -0.56 ABS# (0-10) L 08/28/22 13:20 Troponin T Hi Sens 6Hr 27.63 ng/L (0-15) H 08/28/22 17:33 Troponin T Hi Sens 6Hr Delta 3.63 ng/L (0-12) 08/28/22 17:33 C-Reactive Protein 65.4 mg/L (0.0-4.9) H 08/31/22 05:11 Total Protein 7.5 g/dL (6.6-8.7) 08/28/22 11:14 Albumin 4.4 g/dL (3.5-5.2) 08/28/22 11:14 Globulin 3.1 g/dL (1.3-4.6) 08/28/22 11:14 Procalcitonin 0.14 ng/mL (0-0.5) 08/31/22 05:11 Urine Color Light yellow (Yellow) 08/29/22 11:55 Urine Appearance Clear (CLEAR) 08/29/22 11:55 Urine pH 5 (5-7) 08/29/22 11:55 Ur Specific [place] 1.015 (1.005-1.030) 08/29/22 11:55 Urine Protein Neg (Negative) 08/29/22 11:55 Urine Glucose (UA) Norm (Normal) 08/29/22 11:55 Urine Ketones Negative (Negative) 08/29/22 11:55 Urine Blood Neg (Negative) 08/29/22 11:55 Urine Nitrate Negative (Negative) 08/29/22 11:55 Urine Bilirubin Neg (Negative) 08/29/22 11:55 Urine Urobilinogen Neg mg/dL (Negative) 08/29/22 11:55 Ur Leukocyte Esterase Negative (Negative) 08/29/22 11:55 Vancomycin Trough 9.3 ug/mL (10-15) L 08/30/22 08:34 Vitals Last Vital Signs Temp 98.5 F 09/01/22 07:12 Pulse 67 09/01/22 08:46 Resp 16 09/01/22 08:46 BP 142/79 09/01/22 09:06 Pulse Ox 94 09/01/22 08:46 O2 Del Method Room Air 09/01/22 08:46 O2 Flow Rate 2 08/30/22 20:47 Discharge Plan Discharge Patient Disposition: Home Condition: Stable Prescriptions: New tramadol 50 mg Tablet 50 mg PO Q8H PRN (Reason: headache, breakthrough pain) 5 Days Qty: 15 0RF clonidine HCl 0.1 mg Tablet 0.1 mg PO BID 30 Days Qty: 60 0RF chlorthalidone 25 mg Tablet 25 mg PO DAILY 30 Days Qty: 30 0RF lisinopril 10 mg Tablet 10 mg PO DAILY 30 Days Qty: 30 0RF oxymetazoline [Afrin (oxymetazoline)] 0.05 % spray,non-aerosol 2 spray intranasal BID 5 Days Qty: 30 0RF Rx Instructions: 2 sprays/nostril every hour for next 24 hours, then 4 sprays q6h for 4 days, and then stop amoxicillin-pot clavulanate 875-125 mg tablet 1 tab PO BID 3 Days Qty: 6 0RF [place] Saline 0.65 % aerosol,spray 1 spray intranasal TID 30 Days Qty: 50 0RF Continued allopurinol 300 mg tablet 300 mg PO DAILY omeprazole 20 mg capsule,delayed release(DR/EC) 20 mg PO DAILY acetaminophen [Tylenol Arthritis Pain] 650 mg tablet extended release 650 mg PO DAILY PRN (Reason: Pain) cholecalciferol (vitamin D3) 125 mcg (5,000 unit) capsule 125 mcg PO DAILY Xeljanz 5 mg tablet 5 mg PO BID Qty: 60 3RF albuterol sulfate 90 mcg/actuation HFA aerosol inhaler 2 puff inhalation 6XD PRN (Reason: shortness of breath or wheezing) 30 Days Qty: 8.5 4RF hydrocodone-acetaminophen 5-325 mg tablet 1 tab PO Q8H PRN (Reason: pain) 30 Days Qty: 60 0RF levothyroxine 50 mcg capsule 50 mcg PO DAILY Qty: 90 1RF Changed amlodipine 10 mg tablet 10 mg PO DAILY 30 Days Qty: 30 0RF Held clopidogrel 75 mg tablet 75 mg PO DAILY Hold Instructions: Resume on 09/15/22. aspirin 81 mg tablet,delayed release (DR/EC) 81 mg PO DAILY Hold Instructions: Resume on 09/15/22. mycophenolate mofetil [CellCept] 500 mg tablet 500 mg PO BID Qty: 60 3RF Hold Instructions: Resume on 08/28/22. Discontinued losartan 50 mg tablet 50 mg PO DAILY Qty: 90 0RF Discharge Orders: Discharge Order (Routine); Ordered 09/01/22 Ordered By: Gregorio Bah Referrals: CARDIOLOGY [Provider Group] - 09/14/22 10:15 am ([facility]) Leoncio Moulton DO [Primary Care Provider] - 09/11/22 11:40 am (NEED TO CHECK TIME) Discharge Diet: Cardiac Discharge Activity: Resume usual activity Patient Instructions: Opioid Safety Activity Restrictions/Additional Instructions: - Please continue to hold aspirin, Plavix for at least 2 weeks, follow-up with Dr. Reynolds, and Dr. Shannon for decision to continue -If you develop any bloody or black stools, or any recurrent nosebleeds go immediately to the emergency room -Please use tramadol sparingly for your chest wall discomfort, do not use with hydrocodone, do not drive or operate heavy machinery or drink alcohol while taking medication Discharge Attestations Time Spent in Discharge Care*: greater than 30 min Quality Metrics Clinical Quality Measures [ No reported AMI, CVA or VTE this stay] Coding Level of Care Code 82134 Total time (in minutes) for Discharge: 40 Diagnoses Epistaxis R04.0
[2022-09-01 14:25] LABS: Vancomycin Trough 17.9 ug/mL (10-15)
--- NOTE | 2022-09-01 15:47 | PC.NURSE ---
Discussed discharge with patient, spouse and daughter. Discussed new medications, changed and stopped medications as well as all follow up appointments. Family and patient verbalized understanding.
== END 2022-09-01 15:30 | disposition home or self-care (01) | DRG 150 ==
LOC: ER 13:06 → MEDSURG 18:43
PROVIDERS: Admitting Provider Family Medicine; Emergency Provider Family Medicine; PCP Family Medicine; Visit Provider Family Medicine
DX: R04.0 Epistaxis (principal); I21.4 Non-ST elevation (NSTEMI) myocardial infarction; I46.9 Cardiac arrest, cause unspecified; J69.8 Pneumonitis due to inhalation of other solids and liquids; D68.32 Hemorrhagic disorder due to extrinsic circulating anticoagulants; N17.9 Acute kidney failure, unspecified; T45.525A Adverse effect of antithrombotic drugs, initial encounter; E03.9 Hypothyroidism, unspecified; Z86.73 Personal history of transient ischemic attack (TIA), and cerebral infarction without residual deficits; I10 Essential (primary) hypertension; J43.9 Emphysema, unspecified; Z86.12 Personal history of poliomyelitis; M05.9 Rheumatoid arthritis with rheumatoid factor, unspecified; R07.89 Other chest pain; Z79.51 Long term (current) use of inhaled steroids; Z79.891 Long term (current) use of opiate analgesic; K21.9 Gastro-esophageal reflux disease without esophagitis; G47.33 Obstructive sleep apnea (adult) (pediatric); Z87.891 Personal history of nicotine dependence; M10.9 Gout, unspecified
CPT/HCPCS: 12345; 30901; 36415; 36600; 70450; 71045; 80048; 80051; 80053; 80202; 81003; 82330; 82550; 82805; 83605; 84145; 84484; 85025; 85610; 86140; 87040; 93005; 94664; 96374; 96375; 99285; C8929; C9113; J0360; J2060; J2270; J2405; J2543; J3370; J7030; J7040; Q9956

== ENCOUNTER → 2022-09-14 10:18 | Outpatient (BNVA) | payer MEDICARE, OTHER, SELFPAY | PROVIDERS: PCP Family Medicine; Visit Provider Internal Medicine Cardiovascular Disease | DX: R55 Syncope and collapse (principal); Z79.82 Long term (current) use of aspirin; I12.9 Hypertensive chronic kidney disease with stage 1 through stage 4 chronic kidney disease, or unspecified chronic kidney disease; N18.9 Chronic kidney disease, unspecified; Z86.73 Personal history of transient ischemic attack (TIA), and cerebral infarction without residual deficits | CPT/HCPCS: 99204 ==

== ENCOUNTER → 2022-10-03 10:30 | Outpatient (BNVA) | payer MEDICARE, OTHER, SELFPAY | PROVIDERS: PCP Family Medicine; Visit Provider Internal Medicine Rheumatology | DX: M05.79 Rheumatoid arthritis with rheumatoid factor of multiple sites without organ or systems involvement (principal); J84.9 Interstitial pulmonary disease, unspecified; Z71.85 Encounter for immunization safety counseling; Z79.899 Other long term (current) drug therapy; M70.60 Trochanteric bursitis, unspecified hip; R76.0 Raised antibody titer; Y93.9 Activity, unspecified | CPT/HCPCS: 99214 ==

== ENCOUNTER 2022-10-12 08:10 | Outpatient (CLI) | payer MEDICARE, OTHER, SELFPAY ==
--- NOTE | 2022-10-12 08:41 | NMCV_ITS ---
NM charo perf SPECT r/s* [id number] Duong Lei Age: 72 Gender: M : 1950 Exam Date: 10/12/2022 08:41 Ordering Phys: Lee Novoa MD ([email or web address]) Technologist: BOB Banks Exam Location: [facility] Indications: SYNCOPE AND COLLAPSE STRESS TEST [facility] IMAGE PROTOCOL Rest/Stress 1 Lexiscan Day Radiopharmaceutical Dose (mCi) Administration Site Administered by Rest: Tc-99m 11.0 IV BOB Rodriguez Sestamibi Stress:Tc-99m 32.5 IV BOB Rodriguez Sestamibi Rest: 12-Oct-2022 60 Discovery 630 Stress: 12-Oct-2022 30 Discovery 630 0.4mg Lexiscan. Images obtained in supine and prone position. SPECT RESULTS Technical Quality: Excellent Raw Data Analysis: Normal Image Corrections: No attenuation or motion correction applied Summed Stress Score: 6 Summed Rest Score: 0 Summed Difference Score: 6 PERFUSION FINDINGS Small sized perfusion abnormality of moderate severity of mid inferior, mid inferolateral and apical lateral zurita on stress images improved tracer uptake on prone stress images. FUNCTIONAL RESULTS (calculated via Gated SPECT) Stress Image LV EF (%): 76 Stress EDV (mL):82 TID: 1.02 Stress ESV (mL):20 FUNCTIONAL FINDINGS: The left ventricle is normal in size. Transient Ischemia Dilatation of 1. The left ventricular ejection fraction is normal with a value of 76%. There is normal left ventricular wall thickening. Normal end-diastolic and end-systolic volumes IMPRESSIONS 1. Small sized perfusion abnormality of moderate severity of mid inferior, mid inferolateral and apical lateral zurita on supine images with improved tracer uptake on prone images. This likely represents attenuation artifact. For small area of ischemia in circumflex artery territory cannot be completely ruled out. 2. Overall left ventricular systolic function is normal without regional wall motion abnormalities, LVEF=76%. 3. EKG portion of the study will be reported separately. Kristy Cordova MD (Electronically Signed) Final Date: 13 Oct 2022 10:44 S
--- NOTE | 2022-10-12 08:41 | ECG_ITS ---
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 Interpretive Statements NAME OF STUDY: LEXISCAN SESTAMIBI STRESS TEST INDICATION: Chest Pain PROCEDURE: At the baseline, the blood pressure was 143/62 mmHg with a heart rate of 74 bpm. The electrocardiogram showed rhythm, normal axis. Left atrial enlargement. The Lexiscan was infused over a period of 20 seconds. A total of 0.4 milligrams of Lexiscan was infused. The stress phase was continued for a total of 5 minutes. Heart rate at the end of the stress phase was 74 bpm with a blood pressure 131/66 mmHg. The EKG at the peak infusion revealed no significant ST-T wave changes. Sestamibi was injected 20 seconds after the Lexiscan infusion. Blood pressure at the end of the recovery phase was 127/60 mmHg with a heart rate of 73 beats per minute. CONCLUSION: 1. Normal EKG response to LexiScan infusion. 2. No LexiScan induced chest pain or cardiac arrhythmia. 3. Normal blood pressure and heart rate response. 4. Sestamibi/sestamibi perfusion scan pending; see separate report. Electronically Signed On 10-13-2022 12:04:47 CDT by Kristy Cordova M.D. [email or web address]
[2022-10-12 08:42] VITALS: BMI 31.6
[2022-10-12] MEDS: regadenoson 0.4 Mg/5 ml Syringe IVP (09:29)
[2022-10-12 09:43] VITALS: BP 127/60; PULSE 74
== END 2022-10-12 08:11 | disposition home or self-care (01) ==
LOC: CDL 08:11
PROVIDERS: PCP Family Medicine; Visit Provider Internal Medicine Cardiovascular Disease
DX: R07.9 Chest pain, unspecified (principal); R55 Syncope and collapse
CPT/HCPCS: 36415; 78452; 93017; 96374; A9500; J2785

== ENCOUNTER 2022-10-20 10:50 | Outpatient (CLI) | payer MEDICARE, SELFPAY ==
--- NOTE | 2022-10-20 10:45 | CT_ITS ---
WS: [id number] LDCT LUNG CANCER SCREENING HISTORY: lung screening TECHNIQUE: Axial imaging performed from the apices to 1 cm below the costophrenic angles. Coronal and sagittal reformats are submitted with axial MIP series. All CT scans at [facility] use at least one of these dose optimization techniques: automated exposure control; mA and/or kV adjustment per patient size (includes targeted exams where dose is matched to clinical indication); or iterativ e reconstruction. DLP: 105.71 mGy.cm DIvol: Mean CTDIvol: 2.20 (mGy) COMPARISON: 10/19/2021 Diagnostic quality: Satisfactory Lungs: Hyperinflated lungs with prior granulomatous disease. Calcified pulmonary nodules are identifi ed. Areas of scarring and atelectasis. No mass or nodule. No pneumonia. No endobronchial lesions. Heart: Normal size heart with no pericardial effusion.. Mild coronary artery calcifications. Other findings: Minimal atherosclerosis aorta and proximal great vessels. Normal size pulmonary arter y. No adenopathy. No adrenal mass. Cholelithiasis without acute cholecystitis. Defect in the superior sternal body. There is no displacement. This is a new finding since 10/19/2021. No associated soft tis chapo mass. I suspect this is a healing fracture. Scoliosis thoracic spine. Dorsal column stimulator wi res. CT/CT lung screening [id number] IMPRESSION: LUNG-RADS: 1S-Negative with Significant Findings FOLLOW UP: 12 Month: Continue annual screening with LDCT OTHER FINDINGS (S MODIFIER): Destructive lesion in the superior sternal body. S uspect this is a healing fracture. This defect was not present on the prior CT of 10/19/2021. Recent history of prior code. Possibly obtained during CPR. No rib fractures. Cholelithiasis without acute cholecystitis.
== END 2022-10-20 10:51 | disposition home or self-care (01) ==
LOC: RAD 10:54
PROVIDERS: PCP Family Medicine; Visit Provider Internal Medicine Pulmonary Disease
DX: Z12.2 Encounter for screening for malignant neoplasm of respiratory organs (principal); J43.9 Emphysema, unspecified; J84.9 Interstitial pulmonary disease, unspecified; Z87.891 Personal history of nicotine dependence
CPT/HCPCS: 71271

== ENCOUNTER 2022-11-01 09:48 | Outpatient (RCR) | payer MEDICARE, OTHER, SELFPAY | END 2022-11-17 23:59 | disposition home or self-care (01) | LOC: SPT 09:48 | PROVIDERS: PCP Family Medicine; Visit Provider Internal Medicine Rheumatology | DX: M70.60 Trochanteric bursitis, unspecified hip (principal) | CPT/HCPCS: 97110; 97161 ==

== ENCOUNTER → 2022-11-16 13:20 | Outpatient (BNVA) | payer MEDICARE, SELFPAY | PROVIDERS: PCP Family Medicine; Visit Provider Family Medicine | DX: Z86.74 Personal history of sudden cardiac arrest (principal); D64.9 Anemia, unspecified; I10 Essential (primary) hypertension; Z79.899 Other long term (current) drug therapy | CPT/HCPCS: 80053; 84443; 85025 ==

== ENCOUNTER 2022-11-18 06:00 | Outpatient (RCR) | payer MEDICARE, OTHER, SELFPAY | END 2022-12-18 23:59 | disposition home or self-care (01) | LOC: SPT 06:00 | PROVIDERS: PCP Family Medicine; Visit Provider Internal Medicine Rheumatology | DX: M70.60 Trochanteric bursitis, unspecified hip (principal) | CPT/HCPCS: 97110 ==

== ENCOUNTER 2022-11-29 20:00 | Outpatient (CLI) | payer MEDICARE, OTHER, SELFPAY | END 2022-11-29 20:01 | disposition home or self-care (01) | LOC: SLEEP 11-30 06:20 | PROVIDERS: PCP Family Medicine; Visit Provider Family Medicine | DX: G47.33 Obstructive sleep apnea (adult) (pediatric) (principal) | CPT/HCPCS: 95810 ==

== ENCOUNTER 2022-12-19 06:00 | Outpatient (RCR) | payer MEDICARE, OTHER, SELFPAY | END 2023-01-18 23:59 | disposition home or self-care (01) | LOC: SPT 06:00 | PROVIDERS: PCP Family Medicine; Visit Provider Internal Medicine Rheumatology | DX: M70.60 Trochanteric bursitis, unspecified hip (principal) | CPT/HCPCS: 97110; 99214 ==

== ENCOUNTER → 2022-12-19 10:58 | Outpatient (BNVA) | payer MEDICARE, OTHER, SELFPAY | PROVIDERS: PCP Family Medicine; Visit Provider Internal Medicine Rheumatology | DX: M05.79 Rheumatoid arthritis with rheumatoid factor of multiple sites without organ or systems involvement (principal); R76.0 Raised antibody titer; Z79.899 Other long term (current) drug therapy; Z71.85 Encounter for immunization safety counseling; J84.9 Interstitial pulmonary disease, unspecified; N18.30 Chronic kidney disease, stage 3 unspecified | CPT/HCPCS: 99214 ==

== ENCOUNTER → 2023-01-17 08:52 | Outpatient (BNVA) | payer MEDICARE, OTHER, SELFPAY | PROVIDERS: PCP Family Medicine; Visit Provider Internal Medicine Pulmonary Disease | DX: J84.9 Interstitial pulmonary disease, unspecified (principal); J43.9 Emphysema, unspecified; Z12.2 Encounter for screening for malignant neoplasm of respiratory organs; Z87.891 Personal history of nicotine dependence; M33.22 Polymyositis with myopathy; M06.9 Rheumatoid arthritis, unspecified | CPT/HCPCS: 99214 ==

== ENCOUNTER → 2023-02-06 12:06 | Outpatient (BNVA) | payer MEDICARE, SELFPAY | PROVIDERS: PCP Family Medicine; Visit Provider Family Medicine | DX: N28.9 Disorder of kidney and ureter, unspecified (principal); D64.9 Anemia, unspecified; N18.30 Chronic kidney disease, stage 3 unspecified; J43.9 Emphysema, unspecified | CPT/HCPCS: 80053 ==

== ENCOUNTER → 2023-03-27 10:48 | Outpatient (BNVA) | payer MEDICARE, OTHER, SELFPAY | PROVIDERS: PCP Family Medicine; Visit Provider Internal Medicine Rheumatology | DX: Z79.899 Other long term (current) drug therapy (principal); M05.79 Rheumatoid arthritis with rheumatoid factor of multiple sites without organ or systems involvement; R76.0 Raised antibody titer; Z71.85 Encounter for immunization safety counseling; J84.9 Interstitial pulmonary disease, unspecified; N18.30 Chronic kidney disease, stage 3 unspecified | CPT/HCPCS: 36415; 80076; 82565; 85025; 86140; 99214 ==

== ENCOUNTER → 2023-07-23 10:00 | Outpatient (BNVA) | payer MEDICARE, OTHER, SELFPAY | PROVIDERS: PCP Family Medicine; Visit Provider Internal Medicine Pulmonary Disease | DX: J84.9 Interstitial pulmonary disease, unspecified (principal); J43.2 Centrilobular emphysema; Z12.2 Encounter for screening for malignant neoplasm of respiratory organs; Z87.891 Personal history of nicotine dependence | CPT/HCPCS: 99214 ==

== ENCOUNTER → 2023-10-02 10:29 | Outpatient (BNVA) | payer MEDICARE, OTHER, SELFPAY | PROVIDERS: PCP Family Medicine; Visit Provider Internal Medicine Rheumatology | DX: Z79.899 Other long term (current) drug therapy (principal); M05.79 Rheumatoid arthritis with rheumatoid factor of multiple sites without organ or systems involvement; R76.0 Raised antibody titer; Z71.85 Encounter for immunization safety counseling; J84.9 Interstitial pulmonary disease, unspecified; N18.31 Chronic kidney disease, stage 3a | CPT/HCPCS: 36415; 80076; 82565; 85025; 86140; 99214 ==

== ENCOUNTER → 2024-02-19 09:32 | Outpatient (BNVA) | payer MEDICARE, OTHER, SELFPAY | PROVIDERS: PCP Family Medicine; Visit Provider Internal Medicine Rheumatology | DX: M05.79 Rheumatoid arthritis with rheumatoid factor of multiple sites without organ or systems involvement (principal); R76.0 Raised antibody titer; Z79.899 Other long term (current) drug therapy; Z71.85 Encounter for immunization safety counseling; J84.9 Interstitial pulmonary disease, unspecified; N18.31 Chronic kidney disease, stage 3a; Z87.891 Personal history of nicotine dependence; Z11.1 Encounter for screening for respiratory tuberculosis; Z11.59 Encounter for screening for other viral diseases | CPT/HCPCS: 36415; 80076; 85025; 85651; 86140; 99214 ==

== ENCOUNTER 2024-07-07 10:14 | Outpatient (CLI) | payer MEDICARE, OTHER, SELFPAY ==
--- NOTE | 2024-07-07 10:15 | MR_ITS ---
WS: [id number] MRI LUMBAR SPINE NONCONTRAST TECHNIQUE: Sagittal T1, T2 and STIR imaging. Axial T1 and T2 imaging. CLINICAL INFORMATION: M54.16 - Radiculopathy, lumbar region COMPARISON: 06/18/2020 FINDINGS: Mild lumbar curve. No acute compression. Disc narrowing worse at L5-S1. Susceptibility artifact from spinal stimulator catheter L1-L2: Small RIGHT foraminal protrusion. Mild RIGHT foraminal narrowing. Spinal canal is patent. Mild facet arthropathy. RIGHT foraminal protrusion is progressed compared to previous. L2-L3: Slight anterolisthesis. Mild annular bulging. Slight narrowing LEFT subarticular recess. Mild facet arthropathy. Foramen are patent. L3-L4: Mild annular bulging. Mild central canal stenosis. Slight impingement LEFT subarticular recess. This is slightly progressed compared to previous. Mild LEFT foraminal narrowing. Moderate facet arthropathy with small facet effusions. L4-L5: Mild annular bulging. Slight narrowing of the subarticular recess bilaterally. Moderate facet arthropathy. Mild RIGHT foraminal narrowing. Moderate facet arthropathy. L5-S1: RIGHT paracentral protrusion. Slight impingement RIGHT S1 nerve root. Mild facet arthropathy. Mild bilateral foraminal narrowing. Visualized pelvic bony structures: Normal. Paravertebral soft tissues: Normal. Sacroiliac fusion. MR/MR lumbar spine wo con* [id number] IMPRESSION: 1. Small RIGHT foraminal protrusion L1-2 progressed compared to previous with mild RIGHT foraminal narrowing. 2. Mild central canal stenosis L3-L4 with impingement LEFT subarticular recess appears slightly progressed. Mild LEFT L3-4 foraminal narrowing. 3. Annular bulging L4-5 with narrowing of the subarticular recess bilaterally. Mild RIGHT L4-5 foraminal narrowing. 4. RIGHT paracentral protrusion L5-S1 slightly impinges the RIGHT S1 nerve rangel t. Mild bilateral L5-S1 foraminal narrowing.
== END 2024-07-07 10:15 | disposition home or self-care (01) ==
LOC: RAD 10:15
PROVIDERS: PCP Family Medicine; Visit Provider Family Medicine
DX: M51.16 Intervertebral disc disorders with radiculopathy, lumbar region (principal); G62.9 Polyneuropathy, unspecified; M51.26 Other intervertebral disc displacement, lumbar region; M48.061 Spinal stenosis, lumbar region without neurogenic claudication; M51.27 Other intervertebral disc displacement, lumbosacral region; M48.07 Spinal stenosis, lumbosacral region; M43.8X6 Other specified deforming dorsopathies, lumbar region; R93.7 Abnormal findings on diagnostic imaging of other parts of musculoskeletal system; M47.896 Other spondylosis, lumbar region; M51.17 Intervertebral disc disorders with radiculopathy, lumbosacral region; M47.897 Other spondylosis, lumbosacral region
CPT/HCPCS: 72148

== ENCOUNTER → 2024-07-22 10:02 | Outpatient (BNVA) | payer MEDICARE, OTHER, SELFPAY | PROVIDERS: PCP Family Medicine; Visit Provider Internal Medicine Rheumatology | DX: M05.79 Rheumatoid arthritis with rheumatoid factor of multiple sites without organ or systems involvement (principal); Z79.899 Other long term (current) drug therapy; R76.0 Raised antibody titer; Z71.85 Encounter for immunization safety counseling; J84.9 Interstitial pulmonary disease, unspecified; N18.31 Chronic kidney disease, stage 3a | CPT/HCPCS: 99214 ==

== ENCOUNTER → 2024-07-24 15:36 | Outpatient (BNVA) | payer MEDICARE, OTHER, SELFPAY | PROVIDERS: PCP Family Medicine; Visit Provider Orthopaedic Surgery | DX: M54.16 Radiculopathy, lumbar region (principal); R20.2 Paresthesia of skin | CPT/HCPCS: 72070; 72110; 99204 ==

== ENCOUNTER 2024-09-18 13:49 | Emergency (ER) | payer MEDICARE, OTHER, SELFPAY ==
--- NOTE | 2024-09-18 13:56 | CTR_ITS ---
PROCEDURE INFORMATION: Exam: CTA Head With Contrast, Arteriography Exam date and time: 09/18/2024 2:06 PM Age: 74 years old Clinical indication: Other: Left side deficet TECHNIQUE: Imaging protocol: Computed tomographic angiography of the head with contrast. Exam focused on the arteries. 3D rendering (Not supervised by radiologist): MIP and/or 3D reconstructed images were created by the technologist. Radiation optimization: All CT scans at this facility use at least one of these dose optimization techniques: automated exposure control; mA and/or kV adjustment per patient size (includes targeted exams where dose is matched to clinical indication); or iterative reconstruction. Contrast material: OMNI 350; Contrast volume: 100 ml; Contrast route: INTRAVENOUS (IV); COMPARISON: CT head thrombolytic [id number] 09/18/2024 2:00 PM RADIATION DOSE METRICS: Total DLP (mGy-cm): 524.37 FINDINGS: ANTERIOR CIRCULATION: Right internal carotid artery: Moderate calcified plaque. No significant stenosis or aneurysm is seen involving the petrous, cavernous, or supraclinoid right internal caroid artery. Right middle cerebral artery: No occlusion or significant stenosis. No aneurysm. Right anterior cerebral artery: No occlusion or significant stenosis. No aneurysm. Left internal carotid artery: Moderate calcified plaque. No significant stenosis or aneurysm is seen involving the petrous, cavernous, or supraclinoid left internal caroid artery. Left middle cerebral artery: No occlusion or significant stenosis. No aneurysm. Left anterior cerebral artery: No occlusion or significant stenosis. No aneurysm. POSTERIOR CIRCULATION: Right vertebral artery: Intradural right vertebral artery demonstrates no occlusion or significant stenosis. No aneurysm. Left vertebral artery: Intradural left vertebral artery demonstrates no occlusion or significant stenosis. No aneurysm. Basilar artery: No occlusion or significant stenosis. No aneurysm. Right posterior cerebral artery: No occlusion or significant stenosis. No aneurysm. origin of the right posterior cerebral artery Left posterior cerebral artery: No occlusion or significant stenosis. No aneurysm. PROCEDURE INFORMATION: Exam: CTA Neck With Contrast Exam date and time: 09/18/2024 2:06 PM Age: 74 years old Clinical indication: Other: Left side deficet TECHNIQUE: Imaging protocol: Computed tomographic angiography of the neck with contrast. Exam focused on the cervical segments of the vasculature. 3D rendering (Not supervised by radiologist): MIP and/or 3D reconstructed images were created by the technologist. Radiation optimization: All CT scans at this facility use at least one of these dose optimization techniques: automated exposure control; mA and/or kV adjustment per patient size (includes targeted exams where dose is matched to clinical indication); or iterative reconstruction. Contrast material: OMNI 350; Contrast volume: 100 ml; Contrast route: INTRAVENOUS (IV); COMPARISON: CT head thrombolytic [id number] 09/18/2024 2:00 PM RADIATION DOSE METRICS: Total DLP (mGy-cm): 524.37 FINDINGS: Right common carotid artery: No stenosis. No dissection or occlusion. Right internal carotid artery: Extensive predominantly noncalcified plaque involving the right carotid bulb and proximal right cervical internal carotid artery resulting in a minimal focal narrowing 1.9 mm with a distal reference diameter 4.7 mm corresponding to a 60% stenosis by NASCET criteria. Right external carotid artery: No occlusion or stenosis of the origin. Left common carotid artery: No stenosis. No dissection or occlusion. Left internal carotid artery: Extensive calcified and noncalcified plaque involving the left carotid bulb and proximal left cervical internal carotid artery resulting in a minimal focal narrowing of 2.3 mm with a distal reference diameter of 5.1 mm corresponding to a 55% stenosis by NASCET criteria. Ulcerated atherosclerotic plaque is noted. Left external carotid artery: No occlusion or stenosis of the origin. Right vertebral artery: No cervical vertebral artery stenosis. No dissection or occlusion. The right vertebral artery is the dominant vertebral artery. Left vertebral artery: No cervical vertebral artery stenosis. No dissection or occlusion. Soft tissues: Emphysematous changes are noted in both upper lungs [id number]. Bones/joints: No acute bony abnormality. Severe disc space narrowing at C5-C6. CT/CT angio headne* [id number] IMPRESSION: No intracranial large vessel arterial stenosis or occlusion. IMPRESSION: 1. Extensive predominantly noncalcified plaque involving the right carotid bulb and proximal right cervical internal carotid artery resulting in a minimal focal narrowing 1.9 mm with a distal reference diameter 4.7 mm corresponding to a 60% stenosis by NASCET criteria. 2. Extensive calcified and noncalcified plaque involving the left carotid bulb and proximal left cervical internal carotid artery resulting in a minimal focal narrowing of 2.3 mm with a distal reference diameter of 5.1 mm corresponding to a 55% stenosis by NASCET criteria. Left carotid plaque ulcerations are noted. REFERENCES: NASCET CRITERIA. The degree of stenosis in the cervical segment of the internal carotid artery is based on NASCET criteria. Normal is no stenosis. Mild is less than 50% stenosis. Moderate is 50-69% stenosis. Severe is 70% to 99% stenosis. Total occlusion is no detectable patent lumen.
--- NOTE | 2024-09-18 13:56 | CT_ITS ---
WS: [id number] CT scan of the head, 09/18/2024 Clinical Data: Symptoms of acute stroke Comparison: CT head 08/28/2022 DLP: 1111.[address] scans at [facility] use at least one of these dose optimization techniques: automated exposure control; mA and/or kV adjustment per patient size (includes targeted exams where dose is matched to clinical indication); or iterative reconstruction. Findings: The ventricular system is slightly dilated without shift. Minimal small vessel changes are seen with parenchymal loss. No recent infarct or hemorrhage is seen. There are no abnormal intracerebral masses. The cerebellum and brainstem are not remarkable. Bony windows of the skull and skull base show no fractures or erosions. The mastoid air cells, internal auditory canals, sella turcica, intraorbital contents, and paranasal sinuses are unremarkable. CT/CT head thrombolytic [id number] Impression: Negative CT scan of the head
--- NOTE | 2024-09-18 13:56 | XR_ITS ---
WS: [email or web address] Portable AP upright chest, 09/18/2024 Clinical Data: cva Comparison: Portable chest, 08/29/2022 Findings: No nodules, masses or effusions are seen. The heart is normal. The pulmonary vascularity is not increased. No pneumonia or pneumothorax is seen. The diaphragms are flattened. There is an epidural stimulator with wires ending in the lower thoracic space. XR/XR chest 1V portable [id number] Impression: Hyperinflation.
--- NOTE | 2024-09-18 13:57 | ED_ITS ---
HPI - Neuro Symptoms/Deficit 2 General: Chief Complaint: Neuro Symptoms/Deficit Stated Complaint: neuro symptoms Time Seen by Provider: 09/18/24 13:55 Source: patient Mode of arrival: ambulatory Limitations: no limitations History of Present Illness: This patient presented to the emergency department because of left hand weakness. 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 He states this occurred approximately 15 minutes prior to his arrival to the emergency department he denies any other deficits or concomitant symptoms such as headache difficulty with speech vision etc. Dates he does not have any balance difficulties either. He had a prior stroke in the past but was left with minimal if any residual deficits perhaps some right upper lip numbness. He takes his usual medications including clopidogrel faithfully. He denies any other concomitant symptoms falls or trauma etc. Associated symptoms: Deny chest pain, headache(s), nausea, vertigo or vomiting Related Data Previous Rx's ?Medication ?Instructions ?Recorded clopidogrel 75 mg tablet 75 mg PO DAILY #90 tabs 09/18 11/11 allopurinol 300 mg tablet 300 mg PO DAILY #90 tabs amlodipine 10 mg tablet See Rx Instructions .Route 0 11/05/23 .COMPLEX #90 tabs glycopyrrolate 9 mcg-formoterol 2 puff inhalation BID #10.7 grams 11/05/23 4.8 mcg HFA aerosol inhaler (Bevespi Aerosphere) prednisone 5 mg tablet 5 mg PO DAILY #90 tabs 02/18 tofacitinib 5 mg tablet (Xeljanz) 5 mg PO DAILY #90 ta bs 02/19/24 Held on 07/22/24. Instructions: Doctor's Order mycophenolate mofetil 500 mg 500 mg PO BID #180 tabs 0 07/31/24 tablet (CellCept) levothyroxine 50 mcg capsule 50 mcg PO DAILY #90 caps 08/05/24 lisinopril 10 mg tablet 10 mg PO DAILY 30 days #90 t abs 08/05/24 omeprazole 20 mg capsule,delayed See Rx Instructions . Route 08/05/24 release .COMPLEX #90 caps hydromorphone 2 mg tablet 1 mg (1/2 x 2 mg) PO Q6H PRN pain 08/14/24 7 days #28 tabs rosuvastatin 20 mg tablet 20 mg PO DAILY #30 tabs 05/0 06/14 Allergies Allergy/AdvReac Type Severity Reaction Status Date / Time duloxetine (From Cymbalta) Allergy Unknown Verified 09/12/24 17:01 oxycodone Allergy Unknown Verified 09/12/24 17:01 Review of Systems 2 Const: Denies: fever(s) or chills Eyes: Denies: change in vision ENMT: Denies: throat pain or odynophagia Card: Denies: chest pain, palpitations or irregular heart rhythm Resp: Denies: productive cough or non-productive cough GI: Denies: nausea, vomiting or diarrhea : Denies: flank pain, difficulty urinating or dysuria Musc: Denies: neck pain, back pain, extremity pain or extremity swelling Skin/Breast: Denies: rash, pruritus or erythema Neuro: Reports: weakness in extremities; Denies: headache(s), difficulty walking, dizziness, vertigo or Slurred speech present Psych: Denies: anxiety or depression Sid/Lymph: Reports: easy bruising; Denies: easy bleeding PFSH ED 2 PFSH: Medical History Enrolled in chronic care management please do not remove from active CKD (chronic kidney disease) stage 3, GFR 30-59 ml/min Syncopal episodes Immunization counseling High risk medication use Abnormal antibody titer + MDA-5 ab Seropositive rheumatoid arthritis of multiple sites Arthritis Stroke GERD (gastroesophageal reflux disease) Insomnia Gout Carotid artery obstruction HTN (hypertension) Hypothyroid Surgical History No pertinent past surgical history Family History Brother Diabetes Social History Smoking and tobacco/nicotine status: never used tobacco/nicotine Quit status (tobacco/nicotine): has quit using Year quit tobacco: 2016 Former quit date comment: 1 ppd X 57 years Alcohol intake: current Substance/Drug Use: never NIH stroke score 2 NIHSS: Level Of Consciousness - 1a: 0 Level Of Consciousness Questions - 1b: Both Correct Level Of Consciousness Commands - 1c: Both Correct Best Gaze - 2: Normal Visual Trejo - 3: No Visual Loss Facial Palsy - 4: N ormal Motor Arm Right - 5: No Drift Motor Arm Left - 5: Drift Motor Leg Right - 6: No Drift Motor Leg Left - 6: No Drift Limb Ataxia - 7: Absent Sensory - 8: Normal Best Language - 9: No Aphasia Dysarthia - 10: Normal Extinction And Inattention - 11: 0 Score: Total Score: 1 Physical Exam 2 Narrative: EXAM NARRATIVE: He is alert appears to be in no acute distress he answers questions in a goal- directed fashion. Const: COMMON NORMALS: no acute distress, patient oriented x3 and healthy appearing GENERAL APPEARANCE: cooperative and comfortable HENMT: COMMON NORMALS: normocephalic, Normal nasal mucous membranes and turbinates present, moist oral mucous membranes and oropharynx normal HEAD & SCALP: normocephalic FACE & SINUS: face symmetric NOSE: Normal nasal mucous membranes and turbinates present Eye: COMMON NORMALS: Equal, round and reactive pupils present, EOMs intact bilaterally, conjunctivae normal and no scleral icterus CONJUNCTIVA: Yes conjunctivae normal PUPIL: Yes Equal, round and reactive pupils present Neck/C-Spine: COMMON NORMALS: full ROM, no lymphadenopathy, supple and No carotid bruits Chest: COMMONS NORMALS: normal inspection of the chest Resp: COMMON NORMALS: normal respiratory effort, No use of accessory muscles and clear to auscultation bilaterally AUSCULTATION: clear to auscultation bilaterally Cardio: COMMON NORMALS: regular rate, No murmurs present (Cardio) and Peripheral pulses 2+ throughout RATE: regular rate PERIPHERAL PULSES: P eripheral pulses 2+ throughout GI: COMMON NORMALS: Normal to inspection, nondistended, normoactive bowel sounds present and Soft to palpation PALPATION: Yes Soft to palpation : COMMON NORMALS: Yes no CVA tenderness BLADDER/KIDNEY EXAM: Yes no CVA tenderness Back/Pelvis: COMMON NORMALS: no CVA tenderness, thoracic and lumbar spine normal to inspection and no thoracic nor lumbar tenderness Extremity: COMMON NORMALS: normal to inspection, no calf tenderness and no pedal edema Neuro: COMMON NORMALS: patient oriented x3 CRANIAL NERVES: Yes CN normal except as noted Psych: COMMON NORMALS: mental status grossly normal Skin: COMMON NORMALS: no rashes or lesions noted, no wounds and turgor normal GENERAL SKIN EXAM: no rashes or lesions noted and turgor normal Course 2 Reevaluation(s): Reevaluation #1: Patient was reexamined. He states that he is feels better and is ready to go home. I repeat neurologic examination was performed. With attention initially to his left upper extremity. He has no weakness of his chief information security officer strength or any other weakness of his left upper extremity. He has no drift of any of his 4 extremities. He has no dysmetria he is able to finger-nose and [id number] without difficulty. He has facial symmetrical facies, normal speech and no other focal findings at this time. Time: 14:47 Reevaluation #2: Laboratories reviewed. He does have apparent chronic kidney disease as noted by his creatinines which have progressively elevated over the past several years. No other notable findings. His CTA does show carotid disease bilaterally but less than any threshold that would be considered for surgical correction and/or referral. He is not on a statin as noted I think that would be appropriate to add a statin to his regimen. Time: 15:29 Reevaluation #3: Patient again remains asymptomatic. I discussed current findings the need to add a statin and answered all of the questions. He voiced understanding and desires to be discharged at this time. We also discussed return precautions and follow-up. Time: 15:57 Consultations: Consultation #1: I discussed current findings and his resolution of symptoms with Dr. Barriga. We reviewed his findings thus far and notable that we still have CTA pending and other ancillary studies but at this point it is hard to classify him as a TIA and it could be a possible peripheral neuropathy but that is not clear either from his history however at this point he is on double antiplatelet therapy already. Absolutely no indication for thrombolysis today given his resolution of symptoms. Will certainly consider adding a statin onto his regimen. Time: 14:52 Vital Signs: Vital signs: Vital Signs Pulse Rate 78 09/18/24 15:44 Respiratory Rate 18 09/18/24 15:15 Blood Pressure 136/70 09/18/24 15:44 Pulse Oximetry 98 09/18/24 15:44 MDM - Neuro Symptoms/Deficit Medical Decision Making Patient presented as noted in the history of present illness. A code stroke was called and after initial primary survey with notable left upper extremity weakness he was sent to CT and CTA. Neurology also responded in the appropriate time and fashion. Workup in the emergency department included CT and CTA to evaluate for hemorrhagic nonhemorrhagic stroke large vessel occlusion etc. Within a short period of time in the emergency department the patient's symptoms had resolved. I repeat complete neurologic evaluation revealed no evidence of any focal findings. Laboratories were also reassuring other than he has evidence of chronic kidney disease. Because of the findings on his CTA showing noncalcified plaque with narrowing significantly less than the threshold for intervention we will place him on a statin. The patient remained stable and desired to be discharged and we discussed return precautions. Medical Records I reviewed the patient's medical records. Prior echocardiogram did not reveal any evidence of structural abnormalities Lab Data 09/18/24 14:24 09/18/24 14:24 Radiology Impressions Chest X-Ray 09/18/24 13:56 Impression: Hyperinflation. Head CT 09/18/24 13:56 Impression: Negative CT scan of the head Head/Neck CTA 09/18/24 13:56 IMPRESSION: No intracranial large vessel arterial stenosis or occlusion. IMPRESSION: 1. Extensive predominantly noncalcified plaque involving the right carotid bulb and proximal right cervical internal carotid artery resulting in a minimal focal narrowing 1.9 mm with a distal reference diameter 4.7 mm corresponding to a 60% stenosis by NASCET criteria. 2. Extensive calcified and noncalcified plaque involving the left carotid bulb and proximal left cervical internal carotid artery resulting in a minimal focal narrowing of 2.3 mm with a distal reference diameter of 5.1 mm corresponding to a 55% stenosis by NASCET criteria. Left carotid plaque ulcerations are noted. REFERENCES: NASCET CRITERIA. The degree of stenosis in the cervical segment of the internal carotid artery is based on NASCET criteria. Normal is no stenosis. Mild is less than 50% stenosis. Moderate is 50-69% stenosis. Severe is 70% to 99% stenosis. Total occlusion is no detectable patent lumen. Laboratory Results WBC 8.95 10^3/uL (3.29-11.43) 09/18/24 14: RBC 4.19 10^6/uL (3.85-5.65) 09/18/24 14:24 Hgb 12.90 g/dL (11.27-16.99) 09/18/24 14:24 Hct 41.1 % (37-53) 09/18/24 14:24 MCV 98.1 fl (82-101) 09/18/24 14:24 MCH 30.8 pg (27-33) 09/18/24 14:24 MCHC 31.4 g/dL (30-55) 09/18/24 14:24 RDW 14.2 % (12.1-15.1) 09/18/24 14:24 Plt Count 254 10^3/cmm (157-399) 09/18/24 14:24 MPV 10.8 fL (7.4-10.4) H 09/18/24 14:24 Neut % (Auto) 82.7 % 09/18/24 14:24 Lymph % (Auto) 9.2 % 09/18/24 14:24 Brule % (Auto) 6.0 % 09/18/24 14:24 Eos % (Auto) 0.7 % 09/18/24 14:24 Baso % (Auto) 0.8 % 09/18/24 14:24 Neut # (Auto) 7.41 10^3/uL (1.8-7.7) 09/18/24 14:24 Lymph # (Auto) 0.8 10^3/uL (0.8-4.8) 09/18/24 14:24 Brule # (Auto) 0.5 10^3/uL (0.2-0.9) 09/18/24 14:24 Eos # (Auto) 0.1 10^3/uL (0.0-0.8) 09/18/24 14:24 Baso # (Auto) 0.1 10^3/uL (0.0-0.1) 09/18/24 14:24 Nucleated RBC % (auto) 0 % 09/18/24 14:24 Nucleated RBCs # 0.0 /100WBC 09/18/24 14:24 PT 12.90 SECONDS (12.1-14.9) 09/18/24 14:24 INR 0.91 (0.8-1.2) 09/18/24 14:24 APTT 25.4 SECONDS (23.9-36.7) 09/18/24 14:24 Sodium 136 mmol/L (136-145) 09/18/24 14:24 Potassium 4.9 mmol/L (3.5-5.1) 09/18/24 14:24 Chloride 106 mmol/L (98-107) 09/18/24 14:24 Carbon Dioxide 19 mmol/L (22-29) L 09/18/24 14:24 Anion Gap 15.9 (5-19) 09/18/24 14:24 BUN 28 mg/dL (8-23) H 09/18/24 14:24 Creatinine 1.4 mg/dL (0.7-1.2) H 09/18/24 14:24 GFR Calculation Not Reportable 09/18/24 14:24 Glucose 114 mg/dL (65-115) 09/18/24 14:24 POC Glucose 140 mg/dL (70-110) H 09/18/24 13:54 Calculated Osmolality 288 mOsm/kg (285-295) 09/18/24 14:24 Calcium 8.6 mg/dL (8.5-10.5) 09/18/24 14:24 Total Bilirubin 0.3 mg/dL (0.15-1.2) 09/18/24 14:24 AST 12 U/L (0-40) 09/18/24 14:24 ALT 9 U/L (0-41) 09/18/24 14:24 Alkaline Phosphatase 80 U/L (40-130) 09/18/24 14:24 Total Protein 6.5 g/dL (6.6-8.7) L 09/18/24 14:24 Albumin 3.8 g/dL (3.5-5.2) 09/18/24 14:24 Globulin 2.7 g/dL (1.3-4.6) 09/18/24 14:24 Urine Color Yellow (Yellow) 09/18/24 14:43 Urine Appearance Clear (CLEAR) 09/18/24 14:43 Urine pH 5.0 (5-7) 09/18/24 14:43 Ur Specific Hinkley 1.040 (1.005-1.030) H 09/18/24 14:43 Urine Protein Negative (Negative) 09/18/24 14:43 Urine Glucose (UA) Negative (Normal) 09/18/24 14:43 Urine Ketones Negative (Negative) 09/18/24 14:43 Urine Blood Negative (Negative) 09/18/24 14:43 Urine Nitrate Negative (Negative) 09/18/24 14:43 Urine Bilirubin Negative (Negative) 09/18/24 14:43 Urine Urobilinogen 0.2 mg/dL (Negative) 09/18/24 14:43 Ur Leukocyte Esterase Negative (Negative) 09/18/24 14:43 Urine RBC 0-2 /hpf (0-2) 09/18/24 14:43 Urine WBC 0-5 /hpf (0-5) 09/18/24 14:43 Ur Squamous Epith Cells 0-5 /hpf (0-5) 09/18/24 14:43 Amorphous Sediment Not Reportable 09/18/24 14:43 Urine Bacteria None seen /hpf (NONE) 09/18/24 14:43 Hyaline Casts 1.21 /lpf 09/18/24 14:43 All radiology interpretation(s) finalized by discharge EKG Data EKG 1: I personally reviewed and interpreted this EKG as follows: Interpretation: Contemporaneous review of resting EKG reveals a ventricular rate of 78 bpm with normal PA interval, normal QRS duration, normal corrected QT interval. Slight leftward axis consistent with possible left anterior Heema block versus conduction delay. No acute ST-T wave changes noted. Discharge Plan Discharge Patient Disposition: Home Clinical Impression: Brain TIA Condition: Stable Prescriptions: New rosuvastatin 20 mg tablet 20 mg PO DAILY Qty: 30 3RF No Action prednisone 5 mg tablet 5 mg PO DAILY Qty: 90 1RF Xeljanz 5 mg tablet 5 mg PO DAILY Qty: 90 1RF Rx Instructions: 5 mg orally daily; hydromorphone 2 mg tablet 1 mg PO Q6H PRN (Reason: pain) 7 Days Qty: 28 0RF clopidogrel 75 mg tablet 75 mg PO DAILY Qty: 90 3RF allopurinol 300 mg tablet 300 mg PO DAILY Qty: 90 3RF Bevespi Aerosphere 9-4.8 mcg HFA aerosol inhaler 2 puff inhalation BID Qty: 10.7 6RF amlodipine 10 mg tablet See Rx Instructions .ROUTE .COMPLEX Qty: 90 3RF Dose Instruction: Take 1 tablet by mouth once daily for blood pressure Rx Instructions: Take 1 tablet by mouth once daily for blood pressure mycophenolate mofetil [CellCept] 500 mg tablet 500 mg PO BID Qty: 180 1RF omeprazole 20 mg capsule,delayed release(DR/EC) See Rx Instructions .ROUTE .COMPLEX Qty: 90 1RF Dose Instruction: Take 1 capsule by mouth once daily Rx Instructions: Take 1 capsule by mouth once daily lisinopril 10 mg tablet 10 mg PO DAILY 30 Days Qty: 90 3RF levothyroxine 50 mcg capsule 50 mcg PO DAILY Qty: 90 1RF Discharge Orders: Discharge ED (Routine); Ordered 09/18/24 Ordered By: Brendan Root Referrals: Leoncio Moulton, [Primary Care Provider, Family Practice] - 2 weeks Referral Note: left hand weakness with resolution added statin Discharge Diet: Low Salt Discharge Activity: Resume usual activity Patient Instructions: Opioid Safety, Pain Management Activity Restrictions/Additional Instructions: Your emergency department evaluation did not reveal any obvious signs of a stroke or other serious emergency condition at this time as we discussed there is some narrowing of your carotid arteries and therefore we have added medication which is a cholesterol-lowering medication to your medication list. Continue all your other usual medications and if you develop any recurrent symptoms of any kind of concern return to the emergency department immediately. Otherwise follow-up with your doctor in the next 2 to 3 weeks. Print Language: Thai Coding Level of Care Code ED [facility] Nurse for Blanca Yee
[2024-09-18 14:08] LABS: Glucose Point of Care 140 mg/dL (70-110)
[2024-09-18] MEDS: iohexol 350 mg/mL 500 mL Btl (per mL) IV (14:11)
[2024-09-18 14:15] VITALS: BP 150/71; PULSE 75; O2SAT 98
[2024-09-18 14:30] VITALS: BP 144/67; PULSE 78; O2SAT 98
--- NOTE | 2024-09-18 14:37 | ECG_ITS ---
[facility] 2024-[facility]18 Pat Name: Duong Lei Department: Room: Gender: Male Ob Nurse: : 1950 Requested By: Brendan Root Order Number: [id number] MD: Jatinder Ballard M.D. Measurements Intervals [place] Rate: 78 P: 59 UT: 166 QRS: -28 QRSD: 81 T: 69 QT: 355 QTc: 406 Interpretive Statements SINUS RHYTHM BORDERLINE LEFT AXIS DEVIATION [QRS AXIS < -20] POSSIBLE RIGHT VENTRICULAR CONDUCTION DELAY [RSR (QR) IN V1/V2] Compared to ECG 08/28/2022 17:38:59 T-wave abnormality no longer present Electronically Signed On 09-22-2024 09:27:59 CDT by Jatinder Ballard M.D. [email or web address]
[2024-09-18 14:41] LABS: Basophils # 0.1 10^3/uL (0.0-0.1); Basophils % 0.8 %; Eosinophils # 0.1 10^3/uL (0.0-0.8); Eosinophils % 0.7 %; Hematocrit 41.1 % (37-53); Lymphocytes # 0.8 10^3/uL (0.8-4.8); Lymphocytes % 9.2 %; Mean Corpuscular HGB Conc 31.4 g/dL (30-55); Mean Corpuscular Hemoglobin 30.8 pg (27-33); Mean Corpuscular Volume 98.1 fl (82-101); Mean Platelet Volume 10.8 fL (7.4-10.4); Monocytes # 0.5 10^3/uL (0.2-0.9); Neutrophils # 7.41 10^3/uL (1.8-7.7); Neutrophils % 82.7 %; Nucleated Red Blood Cells % 0 %; Platelet Count 254 10^3/cmm (157-399); Red Blood Count 4.19 10^6/uL (3.85-5.65); Red Cell Distribution Width 14.2 % (12.1-15.1); White Blood Count 8.95 10^3/uL (3.29-11.43)
[2024-09-18 14:57] LABS: INR 0.91 (0.8-1.2)
[2024-09-18 14:59] LABS: Partial Thromboplastin Time 25.4 SECONDS (23.9-36.7)
[2024-09-18 15:00] VITALS: BP 138/72; PULSE 74; O2SAT 97
[2024-09-18 15:01] LABS: Alanine Aminotransferase 9 U/L (0-41); Albumin Level 3.8 g/dL (3.5-5.2); Alkaline Phosphatase 80 U/L (40-130); Anion Gap 15.9 (5-19); Aspartate Amino Transferase 12 U/L (0-40); Blood Urea Nitrogen 28 mg/dL (8-23); Calcium 8.6 mg/dL (8.5-10.5); Carbon Dioxide 19 mmol/L (22-29); Chloride 106 mmol/L (98-107); Globulin 2.7 g/dL (1.3-4.6); Glucose 114 mg/dL (65-115); Osmolality Calculated 288 mOsm/kg (285-295); Potassium 4.9 mmol/L (3.5-5.1); Sodium 136 mmol/L (136-145); Total Bilirubin 0.3 mg/dL (0.15-1.2); Total Protein 6.5 g/dL (6.6-8.7)
[2024-09-18 15:04] LABS: Bilirubin Urine Negative (Negative); Blood Urine Negative (Negative); Glucose Urine UA Negative (Normal); Ketones Urine Negative (Negative); Leukocyte Esterase Urine Negative (Negative); Nitrate Urine Negative (Negative); Protein Urine Negative (Negative); Urine Appearance Clear (CLEAR); Urine Color Yellow (Yellow); Urobilinogen Urine 0.2 mg/dL (Negative)
[2024-09-18 15:06] LABS: Add Urine Microscopic? YES; Bacteria Urine None Seen /hpf; Hyaline Casts Urine 1.21 /lpf; RBC Urine 0-2 /hpf (0-2); Squamous Epithelial Cell Urine 0-5 /hpf (0-5); WBC Urine 0-5 /hpf (0-5)
[2024-09-18 15:15] VITALS: BP 140/66; PULSE 72; RESP 18; O2SAT 96
[2024-09-18 15:44] VITALS: BP 136/70; PULSE 78; O2SAT 98
[2024-09-18 16:25] VITALS: BP 158/63; PULSE 85; O2SAT 97
== END 2024-09-18 16:27 | disposition home or self-care (01) ==
PROVIDERS: Emergency Provider Emergency Medicine; PCP Family Medicine
DX: G45.9 Transient cerebral ischemic attack, unspecified (principal); Z87.891 Personal history of nicotine dependence; I12.9 Hypertensive chronic kidney disease with stage 1 through stage 4 chronic kidney disease, or unspecified chronic kidney disease; N18.32 Chronic kidney disease, stage 3b
CPT/HCPCS: 36415; 36416; 70450; 70496; 70498; 71045; 80053; 81001; 82962; 85025; 85610; 85730; 93005; 99285

== ENCOUNTER → 2025-01-27 10:13 | Outpatient (BNVA) | payer MEDICARE, OTHER, SELFPAY | PROVIDERS: PCP Family Medicine; Visit Provider Internal Medicine Rheumatology | DX: M05.79 Rheumatoid arthritis with rheumatoid factor of multiple sites without organ or systems involvement (principal); R76.0 Raised antibody titer; Z79.899 Other long term (current) drug therapy; Z71.85 Encounter for immunization safety counseling; J84.9 Interstitial pulmonary disease, unspecified; N18.31 Chronic kidney disease, stage 3a | CPT/HCPCS: 99214 ==

== ENCOUNTER → 2025-03-09 14:12 | Outpatient (BNVA) | payer MEDICARE, OTHER, SELFPAY | PROVIDERS: PCP Family Medicine; Visit Provider Family Medicine | DX: Z00.00 Encounter for general adult medical examination without abnormal findings (principal); M19.90 Unspecified osteoarthritis, unspecified site; Z79.899 Other long term (current) drug therapy; I12.9 Hypertensive chronic kidney disease with stage 1 through stage 4 chronic kidney disease, or unspecified chronic kidney disease; N18.31 Chronic kidney disease, stage 3a; D64.9 Anemia, unspecified; M05.79 Rheumatoid arthritis with rheumatoid factor of multiple sites without organ or systems involvement; G62.9 Polyneuropathy, unspecified; J84.9 Interstitial pulmonary disease, unspecified; E03.9 Hypothyroidism, unspecified | CPT/HCPCS: 80053; 80061; 84443; 84550; 85025 ==

== ENCOUNTER 2025-05-08 13:47 | Outpatient (CLI) | payer MEDICARE, OTHER, SELFPAY ==
--- NOTE | 2025-05-08 13:56 | XR_ITS ---
WS: [id number] Right hip, 2 views, 05/08/2025 Clinical Data: hip pain Comparison: Pelvis and left hip, 07/04/2022 Findings: No fractures or dislocations are seen. The right hip shows minimal sclerosis. There is a small acetabular lip. There are orthopedic devices, 3 each fusing the SI joints.. The soft tissues are not remarkable. The adjacent pelvis is normal. XR/XR hip RT 2-3V wo/w pel* [id number] Impression: Osteoarthritis of the right hip.
[2025-05-08 14:23] LABS: Hematocrit 43.8 % (37-53); Hemoglobin 14.40 g/dL (11.27-16.99); Mean Corpuscular HGB Conc 32.9 g/dL (30-55); Mean Corpuscular Hemoglobin 30.5 pg (27-33); Mean Corpuscular Volume 92.8 fl (82-101); Nucleated Red Blood Cells % 0 %; Platelet Count 288 10^3/cmm (157-399); Red Blood Count 4.72 10^6/uL (3.85-5.65); White Blood Count 12.42 10^3/uL (3.29-11.43)
[2025-05-08 14:47] LABS: Alanine Aminotransferase 12 U/L (0-41); Albumin Level 4.1 g/dL (3.5-5.2); Alkaline Phosphatase 101 U/L (40-130); Aspartate Amino Transferase 15 U/L (0-40); Globulin 2.8 g/dL (1.3-4.6); Total Protein 6.9 g/dL (6.6-8.7)
== END 2025-05-08 13:48 | disposition home or self-care (01) ==
LOC: RAD 13:49
PROVIDERS: Internal Medicine Rheumatology; PCP Family Medicine; Visit Provider Family Medicine
DX: Z79.899 Other long term (current) drug therapy (principal); M16.11 Unilateral primary osteoarthritis, right hip; M24.851 Other specific joint derangements of right hip, not elsewhere classified
CPT/HCPCS: 73502; 80076; 82565; 85025; 85651; 86140